=== PATIENT | female | born 1985 | race Caucasian/White ===

== ENCOUNTER 2023-09-16 06:52 | Emergency (ER) | payer OTHER ==
--- NOTE | 2023-09-16 07:26 | ED ---
ENT HPI - General Chief complaint: ENT Stated complaint: Swollen Lymph nodes Time Seen by Provider: 09/16/23 07:25 Source: patient, RN notes reviewed Mode of arrival: ambulatory Limitations: no limitations - History of Present Illness Initial comments: 38-year-old female presents emergency Department with chief complaint of left- sided neck discomfort, swelling. Patient states she's had a history of enlarged lymph nodes in which she was diagnosed with cancer age 21. She did have secondary surgery in January and in which she had a lymph node removed on the right. Patient states she started having discomfort and swelling her left mandibular region and which she is concerned she denies any sore throat. - Related Data Previous Rx's Medication Instructions Recorded Amoxic-Pot Clav 875-125Mg 1 tab PO Q12HR #20 tab 09/16/23 [Augmentin 875-125] Ibuprofen [Motrin] 600 mg PO Q8HR PRN #20 tab 09/16/23 Allergies Allergy/AdvReac Type Severity Reaction Status Date / Time promethazine Allergy Rapid Verified 09/16/23 07:02 Heart Rate Review of Systems ROS Statement: Those systems with pertinent positive or pertinent negative responses have been documented in the HPI. ROS Other: All systems not noted in ROS Statement are negative. Past Medical History Past Medical History: Cancer Additional Past Medical History / Comment(s): Lymph node cancer History of Any Multi-Drug Resistant Organisms: None Reported Past Surgical History: Joint Replacement Additional Past Surgical History / Comment(s): Lymph node removals, bilat knee surgery Past Psychological History: Anxiety Smoking Status: Current every day smoker Past Alcohol Use History: Occasional Past Drug Use History: Marijuana General Exam - General Exam Comments Initial Comments: Visual Physical Exam Vital signs reviewed General: Well-appearing, nontoxic, no acute distress. Head: Normocephalic, atraumatic Eyes: PERRLA, EOMI ENT: Airway patent Chest: Nonlabored breathing Skin: No visual rash, normal skin tone Neuro: Alert and oriented 3 Musculoskeletal: No gross abnormalities Limitations: no limitations Course Vital Signs 09/16/23 09/16/23 06:56 10:18 Temperature 97.8 F 97.9 F Pulse Rate 92 91 Respiratory 18 16 Rate Blood Pressure 121/83 137/91 O2 Sat by Pulse 100 97 Oximetry Medical Decision Making - Medical Decision Making I completed the quick note portion of this chart signed Jesus Bueno PA-C Was pt. sent in by a medical professional or institution (TRACY Garcia, CHRISTIAN SCIENCE READER, urgent care, hospital, or fpc...) When possible be specific @ -No Did you speak to anyone other than the patient for history (EMS, parent, family, police, friend...)? What history was obtained from this source @ -No Did you review nursing and triage notes (agree or disagree)? Why? @ -I reviewed and agree with nursing and triage notes Were old charts reviewed (outside hosp., previous admission, EMS record, old EKG, old radiological studies, urgent care reports/EKG's, fpc records)? Report findings @ -No old charts were reviewed Differential Diagnosis (chest pain, altered mental status, abdominal pain women, abdominal pain men, vaginal bleeding, weakness, fever, dyspnea, syncope, headache, dizziness, GI bleed, back pain, seizure, CVA, palpatations, mental health, musculoskeletal)? @ -Sialadenitis, lymphadenopathy, jaw pain EKG interpreted by me (3pts min.). @ -None X-rays interpreted by me (1pt min.). @ -None done CT interpreted by me (1pt min.). @ -None done U/S interpreted by me (1pt. min.). @ -US showing submandibular gland no abnormal lymph nodes What testing was considered but not performed or refused? (CT, X-rays, U/S, labs)? Why? @ -None What meds were considered but not given or refused? Why? @ -None Did you discuss the management of the patient with other professionals (professionals i.e. TRACY Garcia, CHRISTIAN SCIENCE READER, lab, RT, psych nurse, secondary social studies teacher, principal consulting engineer, teacher, police officer crime prevention, clinical case manager)? Give summary @ -No Was smoking cessation discussed for >3mins.? @ -No Was critical care preformed (if so, how long)? @ -No Were there social determinants of health that impacted care today? How? (Homelessness, low income, unemployed, alcoholism, drug addiction, transportation, low edu. Level, literacy, decrease access to med. care, senior care, rehab)? @ -No Was there de-escalation of care discussed even if they declined (Discuss DNR or withdrawal of care, Hospice)? DNR status @ -No What co-morbidities impacted this encounter? (DM, HTN, Smoking, COPD, CAD, Cancer, CVA, ARF, Chemo, Hep., AIDS, mental health diagnosis, sleep apnea, morbid obesity)? @ -None Was patient admitted / discharged? Hospital course, mention meds given and route, prescriptions, significant lab abnormalities, going to OR and other pertinent info. @ -Discharge patient we treated for sialadenitis with Augmentin. She has no significant lymph node abnormality noted, laboratory studies were unremarkable. Patient will follow-up with ENT. Undiagnosed new problem with uncertain prognosis? @ -No Drug Therapy requiring intensive monitoring for toxicity (Heparin, Nitro, Insulin, Cardizem)? @ -No Were any procedures done? @ -No Diagnosis/symptom? @ -Sialadenitis Acute, or Chronic, or Acute on Chronic? @ -[acute Uncomplicated (without systemic symptoms) or Complicated (systemic symptoms)? @ -[uncomplicated Side effects of treatment? @ -No Exacerbation, Progression, or Severe Exacerbation? @ -No Poses a threat to life or bodily function? How? (Chest pain, [place], [place], pneumonia, PE, COPD, DKA, ARF, appy, cholecystitis, CVA, Diverticulitis, Homicidal, Suicidal, threat to staff... and all critical care pts) @ -No - Lab Data Result diagrams: 09/16/23 07:48 09/16/23 07:48 Lab Results 09/16/23 09/16/23 09/16/23 Range/Units 07:48 07:48 07:48 WBC 6.9 (3.8-10.6) k/uL RBC 4.61 (3.80-5.40) m/uL Hgb 14.9 (11.4-16.0) gm/dL Hct 44.9 (34.0-46.0) % MCV 97.4 (80.0-100.0) fL MCH 32.4 (25.0-35.0) pg MCHC 33.2 (31.0-37.0) g/dL RDW 13.1 (11.5-15.5) % Plt Count 325 (150-450) k/uL MPV 8.1 Neutrophils % 72 % Lymphocytes % 20 % Monocytes % 5 % Eosinophils % 1 % Basophils % 0 % Neutrophils # 5.0 (1.3-7.7) k/uL Lymphocytes # 1.4 (1.0-4.8) k/uL Monocytes # 0.4 (0-1.0) k/uL Eosinophils # 0.1 (0-0.7) k/uL Basophils # 0.0 (0-0.2) k/uL Sodium 138 (137-145) mmol/L Potassium 4.3 (3.5-5.1) mmol/L Chloride 107 (98-107) mmol/L Carbon Dioxide 18 L (22-30) mmol/L Anion Gap 13 mmol/L BUN 15 (7-17) mg/dL Creatinine 0.57 (0.52-1.04) mg/dL Est GFR (CKD-EPI)AfAm >90 (>60 ml/min/1.73 sqM) Est GFR (CKD-EPI)NonAf >90 (>60 ml/min/1.73 sqM) Glucose 120 H (74-99) mg/dL Calcium 9.4 (8.4-10.2) mg/dL Total Bilirubin 0.4 (0.2-1.3) mg/dL AST 28 (14-36) U/L ALT 26 (4-34) U/L Alkaline Phosphatase 96 (38-126) U/L Total Protein 7.4 (6.3-8.2) g/dL Albumin 4.3 (3.5-5.0) g/dL Heterophile Antibody Negative (Negative) Group A Strep (PCR) (Not Detectd) 09/16/23 Range/Units 07:48 WBC (3.8-10.6) k/uL RBC (3.80-5.40) m/uL Hgb (11.4-16.0) gm/dL Hct (34.0-46.0) % MCV (80.0-100.0) fL MCH (25.0-35.0) pg MCHC (31.0-37.0) g/dL RDW (11.5-15.5) % Plt Count (150-450) k/uL MPV Neutrophils % % Lymphocytes % % Monocytes % % Eosinophils % % Basophils % % Neutrophils # (1.3-7.7) k/uL Lymphocytes # (1.0-4.8) k/uL Monocytes # (0-1.0) k/uL Eosinophils # (0-0.7) k/uL Basophils # (0-0.2) k/uL Sodium (137-145) mmol/L Potassium (3.5-5.1) mmol/L Chloride (98-107) mmol/L Carbon Dioxide (22-30) mmol/L Anion Gap mmol/L BUN (7-17) mg/dL Creatinine (0.52-1.04) mg/dL Est GFR (CKD-EPI)AfAm (>60 ml/min/1.73 sqM) Est GFR (CKD-EPI)NonAf (>60 ml/min/1.73 sqM) Glucose (74-99) mg/dL Calcium (8.4-10.2) mg/dL Total Bilirubin (0.2-1.3) mg/dL AST (14-36) U/L ALT (4-34) U/L Alkaline Phosphatase (38-126) U/L Total Protein (6.3-8.2) g/dL Albumin (3.5-5.0) g/dL Heterophile Antibody (Negative) Group A Strep (PCR) NOT DETECTED (Not Detectd) Disposition Clinical Impression: Sialadenitis Disposition: HOME SELF-CARE Condition: Stable Instructions (If sedation given, give patient instructions): Sialoadenitis (ED) Additional Instructions: Please return to the Emergency Department if symptoms worsen or any other concerns. Prescriptions: Amoxic-Pot Clav 875-125Mg [Augmentin 875-125] 1 tab PO Q12HR #20 tab Ibuprofen [Motrin] 600 mg PO Q8HR PRN #20 tab PRN Reason: Pain Is patient prescribed a controlled substance at d/c from ED?: No Referrals: Kaleb Fajardo MD [Primary Care Provider] - 1-2 days Orion Coburn MD [STAFF PHYSICIAN] - 1-2 days Time of Disposition: 09:55
[2023-09-16 08:24] LABS: Basophils % (A) 0 %; Eosinophils # (A) 0.1 k/uL (0-0.7); Eosinophils % (A) 1 %; HCT 44.9 % (34.0-46.0); HGB 14.9 gm/dL (11.4-16.0); Lymphocytes # (A) 1.4 k/uL (1.0-4.8); Lymphocytes % (A) 20 %; MCH 32.4 pg (25.0-35.0); MCHC 33.2 g/dL (31.0-37.0); MCV 97.4 fL (80.0-100.0); Mean Platelet Volume 8.1; Monocytes # (A) 0.4 k/uL (0-1.0); Monocytes % (A) 5 %; Neutrophils % (A) 72 %; Platelet Count 325 k/uL (150-450); RBC 4.61 m/uL (3.80-5.40); RDW 13.1 % (11.5-15.5); WBC 6.9 k/uL (3.8-10.6)
[2023-09-16] MEDS ORDERED: HYDROmorphone 1 MG/ML 1 ML SYRINGE IM STA (08:39)
[2023-09-16 08:49] LABS: ALT 26 U/L (4-34); AST 28 U/L (14-36); African American GFR (CKD) >90 (>60 ml/min/1.73 sqM); Albumin 4.3 g/dL (3.5-5.0); Alkaline Phosphatase 96 U/L (38-126); Anion Gap 13 mmol/L; Blood Urea Nitrogen 15 mg/dL (7-17); Calcium 9.4 mg/dL (8.4-10.2); Carbon Dioxide 18 mmol/L (22-30); Chloride 107 mmol/L (98-107); Glucose 120 mg/dL (74-99); Non-African American GFR(CKD) >90 (>60 ml/min/1.73 sqM); Potassium 4.3 mmol/L (3.5-5.1); Sodium 138 mmol/L (137-145); Total Bilirubin 0.4 mg/dL (0.2-1.3); Total Protein 7.4 g/dL (6.3-8.2)
--- NOTE | 2023-09-16 09:34 | US ---
EXAMINATION TYPE: US thyroid st tissue head/neck DATE OF EXAM: 09/16/2023 COMPARISON: NONE CLINICAL INDICATION: Female, 38 years old with history of Left-sided neck pain hx of CA; Hx cancer at age 21. Hx right neck lymph node removal = benign. Left neck pain. Patient states she feels her l ymph nodes swollen. TECHNIQUE: Multiple sonographic images taken on patients area of concern. FINDINGS: Left lateral superior neck scanned at area of concern/pain/palpable. At area of palpable, submandibular gland visualized. Lymph nodes seen with largest measured : 1- short axis = 0.7 cm and cortical thickness= 3.6 mm 2- short axis = 0.7 cm and cortical thickness= 3.0 mm IMPRESSION: Area of palpable abnormality correlates with submandibular gland. There are morphologica lly normal-appearing lymph nodes within the neck.
[2023-09-16] MEDS ORDERED: ACET/COD 300 MG/30 MG STARTER PACK 6 TAB BTL PO STA (09:51)
[2023-09-16 10:42] VITALS: BP 137/91; PULSE 91; RESP 16; TEMP 97.9
== END 2023-09-16 10:20 | disposition home or self-care (01) ==
LOC: EC 06:52
DX: K11.20 Sialoadenitis, unspecified (principal); F17.200 Nicotine dependence, unspecified, uncomplicated; F12.90 Cannabis use, unspecified, uncomplicated; Z88.8 Allergy status to other drugs, medicaments and biological substances; Z86.59 Personal history of other mental and behavioral disorders
CPT/HCPCS: 36415; 87651; 80053; 85025; 86308; 76536; 99284; 96372; J1170

== ENCOUNTER 2025-01-15 13:56 | Inpatient (IN) | payer OTHER ==
--- NOTE | 2025-01-15 14:45 | ED ---
Animal Bite HPI - General Chief Complaint: Animal Bite Stated Complaint: dog bite, lili hand swelling Time Seen by Provider: 01/15/25 14:10 Source: patient Mode of arrival: ambulatory Limitations: no limitations - History of Present Illness Initial Comments: 39-year-old female who presents to the emergency department as a transfer from [facility]. Patient had a dog bite 2 days ago. States there was a neighbors dog that was running down the street and she tried to pick it up. It bit both of her hands. The dog is up-to-date on her vaccines. She is up-to-date on her tetanus. She went into [facility] yesterday and was given a dose of IV antibiotics. She was supposed to be transferred to [facility] but states that her car and route. Today she presented to [place] reporting to bilateral hand swelling. They did give her 2 g of Rocephin, 2 g of Vanco and recommended that she be transferred as there is concern for flexor tenosynovitis due to the painful flexion and extension of her hands. Patient was given 4 mg of morphine for pain. She did transfer herself to our hospital by private vehicle. She denies any fevers. No other alleviating, precipitating or modifying factors - Related Data Home Medications Medication Instructions Recorded Confirmed QUEtiapine [SEROquel] 100 mg PO HS 01/15/25 01/15/25 Venlafaxine HCl [Effexor XR] 150 mg PO DAILY 01/15/25 01/15/25 busPIRone HCL 15 mg PO BID 01/15/25 01/15/25 cloNIDine HCL [Catapres] 0.2 mg PO BID 01/15/25 01/15/25 Allergies Allergy/AdvReac Type Severity Reaction Status Date / Time ciprofloxacin [From Cipro] Allergy Rash/Hives/Lip Verified 01/15/25 16:22 Swelling gabapentin Allergy Rash/Hives/ Verified 01/15/25 16:22 Insomnia tramadol Allergy Rash/Hives Verified 01/15/25 16:22 promethazine AdvReac Rapid Verified 01/15/25 16:22 Heart Rate/Agitation trazodone AdvReac Hallucinati Verified 01/15/25 16:22 ons/Nightma res Review of Systems ROS Statement: Those systems with pertinent positive or pertinent negative responses have been documented in the HPI. ROS Other: All systems not noted in ROS Statement are negative. Past Medical History Past Medical History: Cancer Additional Past Medical History / Comment(s): Lymph node cancer History of Any Multi-Drug Resistant Organisms: None Reported Past Surgical History: Joint Replacement, Orthopedic Surgery Additional Past Surgical History / Comment(s): Lymph node removals, bilat knee surgery Past Psychological History: Anxiety Smoking Status: Current every day smoker Past Alcohol Use History: Occasional Past Drug Use History: Marijuana General Exam Limitations: no limitations General appearance: alert, in no apparent distress Head exam: Present: atraumatic, normocephalic, normal inspection Eye exam: Present: normal appearance, PERRL, EOMI. Absent: scleral icterus, conjunctival injection, periorbital swelling ENT exam: Present: normal exam, mucous membranes moist Neck exam: Present: normal inspection. Absent: tenderness, meningismus, lymphadenopathy Respiratory exam: Present: normal lung sounds bilaterally. Absent: respiratory distress, wheezes, rales, rhonchi, stridor Cardiovascular Exam: Present: regular rate, normal rhythm, normal heart sounds. Absent: systolic murmur, diastolic murmur, rubs, gallop, clicks GI/Abdominal exam: Present: soft, normal bowel sounds. Absent: distended, tenderness, guarding, rebound, rigid Extremities exam: Present: tenderness, normal capillary refill, other (Patient has significant swelling to her bilateral hands. There is a 1 cm pustule on the left index finger on the dorsal lateral surface. Patient has a puncture site at the anterior aspect of the MCP of the fourth digit on the right. There is some difficulties with flexion and extension due to swe). Absent: pedal edema, joint swelling, calf tenderness Back exam: Present: normal inspection Neurological exam: Present: alert, oriented X3, CN II-XII intact Psychiatric exam: Present: normal affect, normal mood Skin exam: Present: warm, dry, normal color, other (Patient has 2+ DP and PT pulses. Compartments are soft). Absent: rash Course Vital Signs 01/15/25 01/15/25 01/15/25 14:06 16:15 17:31 Temperature 97.5 F L 97.7 F Pulse Rate 96 79 82 Respiratory 20 18 18 Rate Blood Pressure 142/90 128/102 138/95 O2 Sat by Pulse 100 100 100 Oximetry Medical Decision Making - Medical Decision Making Was pt. sent in by a medical professional or institution (, PA, STAINED GLASS PAINTER, urgent care, hospital, or [place] health care facility...) When possible be specific @ -Patient was seen by Dr. Ling at [facility] Did you speak to anyone other than the patient for history (EMS, parent, family, police, friend...)? What history was obtained from this source @ -I spoke with Dr. Ling at [facility] Did you review nursing and triage notes (agree or disagree)? Why? @ -I reviewed and agree with nursing and triage notes Were old charts reviewed (outside hosp., previous admission, EMS record, old EKG, old radiological studies, urgent care reports/EKG's, [place] health care facility records)? Report findings @ -I reviewed the transfer packet that was sent with the patient today from [facility] which demonstrated which antibiotic she already received Differential Diagnosis (chest pain, altered mental status, abdominal pain women, abdominal pain men, vaginal bleeding, weakness, fever, dyspnea, syncope, headache, dizziness, GI bleed, back pain, seizure, CVA, palpatations, mental health, musculoskeletal)? @ -Cellulitis, compartment syndrome, flexor tenosynovitis EKG interpreted by me (3pts min.). @ -Not done X-rays interpreted by me (1pt min.). @ -None done CT interpreted by me (1pt min.). @ -None done U/S interpreted by me (1pt. min.). @ -None done What testing was considered but not performed or refused? (CT, X-rays, U/S, la bs)? Why? @ -None What meds were considered but not given or refused? Why? @ -None Did you discuss the management of the patient with other professionals (professionals i.e. , TRACY, STAINED GLASS PAINTER, lab, RT, psych nurse, director of social work, curtains and draperies salesperson, teacher, lead security officer, case worker)? Give summary @ -Spoke with Chanel Doe from orthopedics. Also spoke with Dr. kelley from [facility] for admission Was smoking cessation discussed for >3mins.? @ -No Was critical care preformed (if so, how long)? @ -No Were there social determinants of health that impacted care today? How? (Homelessness, low income, unemployed, alcoholism, drug addiction, transportation, low edu. Level, literacy, decrease access to med. care, half-way, rehab)? @ -No Was there de-escalation of care discussed even if they declined (Discuss DNR or withdrawal of care, Hospice)? DNR status @ -No What co-morbidities impacted this encounter? (DM, HTN, Smoking, COPD, CAD, Cancer, CVA, ARF, Chemo, Hep., AIDS, mental health diagnosis, sleep apnea, mo rbid obesity)? @ -None Was patient admitted / discharged? Hospital course, mention meds given and r oute, prescriptions, significant lab abnormalities, going to OR and other pertinent info. @ -Upon arrival patient seen and evaluated in bed 24. Thorough history and physical exam was performed. I did review the transfer packet. Patient was transferred here for orthopedic consultation. I did speak with Chanel Doe to let her know that the patient was in the emergency department. She will be a dmitted to Dr. Kelley and orthopedics was accepting of the consult. I did continue the patient on antibiotics and pain control. Undiagnosed new problem with uncertain prognosis? @ -No Drug Therapy requiring intensive monitoring for toxicity (Heparin, Nitro, Insulin, Cardizem)? @ -No Were any procedures done? @ -No Diagnosis/symptom? @ -Acute dog bite bilateral hands, acute bilateral hand cellulitis, possible tenosynovitis Acute, or Chronic, or Acute on Chronic? @ -Acute Uncomplicated (without systemic symptoms) or Complicated (systemic symptoms)? @ -Complicated Side effects of treatment? @ -No Exacerbation, Progression, or Severe Exacerbation? @ -No Poses a threat to life or bodily function? How? (Chest pain, USA, [place], pneumonia, PE, COPD, DKA, ARF, appy, cholecystitis, CVA, Diverticulitis, Homicidal, Suicidal, threat to staff... and all critical care pts) @ -No - Lab Data Result diagrams: 01/15/25 15:50 01/15/25 15:50 Disposition Clinical Impression: Dog bite, Flexor tenosynovitis of finger Disposition: ADMITTED IP TO THIS [facility] Condition: Stable Is patient prescribed a controlled substance at d/c from ED?: No Time of Disposition: 14:46 Decision to Admit Reason: Admit from EC Decision Date: 01/15/25 Decision Time: 14:46
[2025-01-15] MEDS ORDERED: NALOXONE 0.4 MG/ML 1 ML VIAL IV PRN (14:46)
[2025-01-15] MEDS: SODIUM CHLORIDE 0.9% 1,000 ML IV SCH (15:51)
[2025-01-15] MEDS: VANCOMYCIN 1,750 MG in SODIUM CHLORIDE 0.9% 500 ML 500 ML IVPB STA (15:52)
[2025-01-15 15:57] LABS: Basophils # (A) 0.05 10*3/uL (0.00-0.10); Basophils % (A) 0.6 %; Eosinophils # (A) 0.06 10*3/uL (0.04-0.35); Eosinophils % (A) 0.8 %; HCT 43.9 % (37.2-46.3); HGB 15.2 g/dL (12.0-15.0); Lymphocytes # (A) 1.28 10*3/uL (0.90-5.00); Lymphocytes % (A) 16.2 %; MCH 32.7 pg (27.0-32.0); MCHC 34.6 g/dL (32.0-37.0); MCV 94.4 fL (80.0-97.0); Mean Platelet Volume 9.6 fL (9.5-12.2); Monocytes # (A) 0.46 10*3/uL (0.20-1.00); Monocytes % (A) 5.8 %; Neutrophils # (A) 6.02 10*3/uL (1.80-7.70); Neutrophils % (A) 76.3 %; Platelet Count 304 10*3/uL (140-440); RBC 4.65 10*6/uL (4.10-5.20); WBC 7.89 10*3/uL (4.50-10.00)
[2025-01-15] MEDS: AMPICILLIN-SULBACTAM 3 GM in SODIUM CHLORIDE 0.9% 100 ML IVPB SCH (16:11)
[2025-01-15 16:20] LABS: ALT 36 U/L (4-34); AST 40 U/L (14-36); African American GFR (CKD) >90 (>60 ml/min/1.73 sqM); Albumin 4.3 g/dL (3.5-5.0); Alkaline Phosphatase 85 U/L (38-126); Anion Gap 10 mmol/L; Blood Urea Nitrogen 10 mg/dL (7-17); C Reactive Protein 3.1 mg/dL (<1.0); Calcium 9.6 mg/dL (8.4-10.2); Carbon Dioxide 25 mmol/L (22-30); Chloride 102 mmol/L (98-107); Glucose 125 mg/dL (74-99); Non-African American GFR(CKD) >90 (>60 ml/min/1.73 sqM); Potassium 3.8 mmol/L (3.5-5.1); Sodium 137 mmol/L (137-145); Total Bilirubin 0.6 mg/dL (0.2-1.3); Total Protein 7.4 g/dL (6.3-8.2)
[2025-01-15] MEDS: MORPHINE SULFATE 4 MG/ML SYRINGE IVP PRN (16:22)
--- NOTE | 2025-01-15 18:00 | P.CNOR ---
History of Present Illness - HPI Consult date: 01/15/25 Consult reason: joint pain (Hand pain, status post dog bite.) History of present illness: 39-year-old female who presents to the emergency department as a transfer from [facility]. Patient had a dog bite to bilateral hands 2 days ago. States there was a neighbors dog that was running down the street and she tried to pick it up. It bit both of her hands. The dog is up-to-date on her vaccine s. She is up-to-date on her tetanus. She went into [facility] yesterday and was given a dose of IV antibiotics. She was supposed to be transferred to [facility] but states that her car and route. Today she presented to [place] ER reporting to bilateral hand swelling. They did give her 2 g of Rocephin, 2 g of Vanco and recommended that she be transferred as there is concern for flexor tenosynovitis due to the painful flexion and extension of her hands. Patient was given 4 mg of morphine for pain. She did transfer herself to our hospital by private vehicle. She denies any fevers. No other alleviating, precipitating or modifying factors. We have been consulted for orthopedic evaluation. Past Medical History Past Medical History: Cancer Additional Past Medical History / Comment(s): Lymph node cancer History of Any Multi-Drug Resistant Organisms: None Reported Past Surgical History: Joint Replacement, Orthopedic Surgery Additional Past Surgical History / Comment(s): Lymph node removals, bilat knee surgery Past Psychological History: Anxiety Smoking Status: Current every day smoker Past Alcohol Use History: Occasional Past Drug Use History: Marijuana Medications and Allergies Home Medications Medication Instructions Recorded Confirmed Type QUEtiapine [SEROquel] 100 mg PO HS 01/15/25 01/15/25 History Venlafaxine HCl [Effexor XR] 150 mg PO DAILY 01/15/25 01/15/25 History busPIRone HCL 15 mg PO BID 01/15/25 01/15/25 History cloNIDine HCL [Catapres] 0.2 mg PO BID 01/15/25 01/15/25 History Allergies Allergy/AdvReac Type Severity Reaction Status Date / Time ciprofloxacin [From Cipro] Allergy Rash/Hives/Lip Verified 01/15/25 16:22 Swelling gabapentin Allergy Rash/Hives/ Verified 01/15/25 16:22 Insomnia tramadol Allergy Rash/Hives Verified 01/15/25 16:22 promethazine AdvReac Rapid Verified 01/15/25 16:22 Heart Rate/Agitation trazodone AdvReac Hallucinati Verified 01/15/25 16:22 ons/Nightma res Physical Examination This is a pleasant 39-year-old female in no acute distress. She is alert and oriented x 3. Exam of the head neck revealed no obvious deformity. Full cervical spine motion without difficulty or pain. Exam of the left upper extremity reveals swelling to the index finger with a small wound on the radial aspect of the finger at the DIP joint. She is able to fully extend the finger and flex about 50% of flexion. Remaining fingers are unremarkable. Neurovascular status to the left upper extremity is intact. Exam of the right upper extremity reveals mild erythema and swelling to the palmar aspect of the hand at the region of the 3rd and 4th MCP joint. There is a small puncture wound in this area. She is able to fully extend the fingers and has some difficulty with flexion. Neurovascular status to the upper extremity is intact. Capillary refill is brisk. Results There are no hand x-rays available. - Labs Labs: Abnormal Lab Results - Last 24 Hours (Table) 01/15/25 01/15/25 Range/Units 15:50 15:50 Hgb 15.2 H (12.0-15.0) g/dL MCH 32.7 H (27.0-32.0) pg Glucose 125 H (74-99) mg/dL AST 40 H (14-36) U/L ALT 36 H (4-34) U/L C-Reactive Protein 3.1 H (<1.0) mg/dL H & H 01/15/25 Range/Units 15:50 Hgb 15.2 H (12.0-15.0) g/dL Hct 43.9 (37.2-46.3) % Result Diagrams: 01/15/25 15:50 01/15/25 15:50 Assessment and Plan (1) Bilateral hand swelling Current Visit: Yes Status: Acute Code(s): M79.89 - OTHER SPECIFIED SOFT TISSUE DISORDERS SNOMED Code(s): 268361080 (2) Superficial wound due to dog bite Current Visit: Yes Status: Acute Code(s): T14.8XXA - OTHER INJURY OF UNSPECIFIED BODY REGION, INITIAL ENCOUNTER; W54.0XXA - BITTEN BY DOG, INITIAL ENCOUNTER SNOMED Code(s): 638074106 Plan: The clinical findings are discussed with the patient. It is recommended she have at least 24 hours of IV antibiotics and moist heat to both hands. I will reevaluate tomorrow and discussed possible surgical debridement if necessary.
[2025-01-15 18:30] LABS: Erythrocyte Sedimentation Rate 35 mm/Hr (0-20)
--- NOTE | 2025-01-15 19:44 | P.HPIM ---
History of Present Illness This is a pleasant 39 years old female who presents with animal bite. Patient was seen with family member, significant other at bedside. Patient states that she has been bitten by a neighbor dog. She thinks her symptoms were extended approximately. She reports pain about 9/10 No chest pain. No dyspnea. No other specific GI/ symptoms. No headache dizziness weakness numbness She smokes about 4 to 5 cigarettes/day and she was counseled to quit but she does not want nicotine patch. No alcohol or illicit drugs. She is afebrile and blood pressure stable WBC normal 7.8 as well as rest of CBC and BMP. Liver enzymes mildly elevated. ESR is slightly up at 35 with CRP slightly up at 3.1 Patient is on IV vancomycin Patient evaluated by orthopedic team with possible need for surgical debridement per their evaluation Review of Systems Review of systems CONSTITUTIONAL: No fever, no malaise, no fatigue. HEENT: No recent visual problems or hearing problems. Denied any sore throat. CARDIOVASCULAR: No orthopnea, PND, no palpitations, no syncope. PULMONARY: No shortness of breath, no cough, no hemoptysis. GASTROINTESTINAL: No diarrhea, no nausea, no vomiting, no abdominal pain. Normoactive bowel sounds. NEUROLOGICAL: No headaches, no weakness, no numbness. HEMATOLOGICAL: Denies any bleeding or petechiae. GENITOURINARY: Denies any burning micturition, frequency, or urgency. MUSCULOSKELETAL/RHEUMATOLOGICAL: Denies any joint pain, swelling, or any muscle pain. ENDOCRINE: Denies any polyuria or polydipsia. Past Medical History Past Medical History: Cancer Additional Past Medical History / Comment(s): Lymph node cancer History of Any Multi-Drug Resistant Organisms: None Reported Past Surgical History: Joint Replacement, Orthopedic Surgery Additional Past Surgical History / Comment(s): Lymph node removals, bilat knee surgery Past Psychological History: Anxiety Smoking Status: Current every day smoker Past Alcohol Use History: Occasional Past Drug Use History: Marijuana Medications and Allergies Home Medications Medication Instructions Recorded Confirmed Type QUEtiapine [SEROquel] 100 mg PO HS 01/15/25 01/15/25 History Venlafaxine HCl [Effexor XR] 150 mg PO DAILY 01/15/25 01/15/25 History busPIRone HCL 15 mg PO BID 01/15/25 01/15/25 History cloNIDine HCL [Catapres] 0.2 mg PO BID 01/15/25 01/15/25 History Allergies Allergy/AdvReac Type Severity Reaction Status Date / Time ciprofloxacin [From Cipro] Allergy Rash/Hives/Lip Verified 01/15/25 16:22 Swelling gabapentin Allergy Rash/Hives/ Verified 01/15/25 16:22 Insomnia tramadol Allergy Rash/Hives Verified 01/15/25 16:22 promethazine AdvReac Rapid Verified 01/15/25 16:22 Heart Rate/Agitation trazodone AdvReac Hallucinati Verified 01/15/25 16:22 ons/Nightma res Physical Exam Vitals: Vital Signs Temp Pulse Pulse Resp BP BP Pulse Ox 01/15/25 18:07 97.3 F L 71 16 153/91 100 01/15/25 17:31 97.7 F 82 18 138/95 100 01/15/25 16:15 79 18 128/102 100 01/15/25 14:06 97.5 F L 96 20 142/90 100 Intake and Output 01/15/25 01/15/25 01/15/25 06:59 14:59 22:59 Other: Weight 103.873 kg 103.873 kg GENERAL: The patient is alert and oriented x3, not in any acute distress. Well developed, well nourished. HEENT: Pupils are round and equally reacting to light. EOMI. No scleral icterus. No conjunctival pallor. Normocephalic, atraumatic. No pharyngeal erythema. No thyromegaly. CARDIOVASCULAR: S1 and S2 present. No murmurs, rubs, or gallops. PULMONARY: Chest is clear to auscultation, no wheezing , no crackles. ABDOMEN: Soft, nontender, nondistended, normoactive bowel sounds. No palpable organomegaly. MUSCULOSKELETAL: No joint swelling or deformity. -EXTREMITIES: No cyanosis, clubbing, or pedal edema. Bilateral hand swelling and tender with some limitation of movement for example finger flexion. With e vidence of animal bite with close puncture wounds on the bilateral right index finger and left palm and side of the left little finger. With some swelling extending to the distal forearm. Moderate free bilateral wrist movement NEUROLOGICAL: Gross neurological examination did not reveal any focal deficits. SKIN: No rashes. no petechiae. Results CBC & Chem 7: 01/15/25 15:50 01/15/25 15:50 Labs: Abnormal Lab Results - Last 24 Hours (Table) 01/15/25 01/15/25 Range/Units 15:50 15:50 Hgb 15.2 H (12.0-15.0) g/dL MCH 32.7 H (27.0-32.0) pg ESR 35 H (0-20) mm/Hr Glucose 125 H (74-99) mg/dL AST 40 H (14-36) U/L ALT 36 H (4-34) U/L C-Reactive Protein 3.1 H (<1.0) mg/dL Thrombosis Risk Factor Assmnt - Choose All That Apply Any of the Below Risk Factors Present?: No Other Risk Factors: No Other congenital or acquired thrombophilia - If yes, enter type in comment: No Thrombosis Risk Factor Assessment Level: Very Low Risk Assessment and Plan Assessment: Acute bilateral hands slightly secondary to animal bite Nicotine dependence Obesity with BMI of 41.9 Elevated inflammatory markers Mild transaminitis Plan: Continue with IV antibiotics IV vancomycin Orthopedic team already evaluated patient. Will consult infectious disease team Follow-up culture results Further recommendation based on the clinical progress GI prophylaxis: Pepcid DVT prophylaxis: Subcutaneous Lovenox Prognosis is guarded
[2025-01-15] MEDS: FAMOTIDINE 20 MG/2 ML VIAL IV SCH (21:36)
[2025-01-15] MEDS: HEPARIN SODIUM,PORCINE 5,000 UNIT/ML 1 ML VIAL SQ SCH (21:38)
[2025-01-15] MEDS: VANCOMYCIN 1,750 MG in SODIUM CHLORIDE 0.9% 500 ML 500 ML IVPB SCH (21:38)
[2025-01-15] MEDS: QUEtiapine 100 MG TAB PO SCH (21:38)
[2025-01-16] MEDS ORDERED: VANCOMYCIN IV PER PHARMACY 1 EACH MISC MISCELLANE PRN (08:00)
[2025-01-16 08:35] LABS: HCT 45.2 % (37.2-46.3); HGB 14.9 g/dL (12.0-15.0); MCH 32.2 pg (27.0-32.0); MCV 97.6 FL (80.0-97.0); NRBC Per 100 WBC 0 X 10*3/uL (0.00-0.01); Platelet Count 320 X 10*3/uL (140-440); RBC 4.63 X 10*6/uL (4.10-5.20); RDW 13.2 % (11.5-14.5); WBC 5.18 X 10*3/uL (4.50-10.00)
[2025-01-16 08:36] LABS: Basophils # (A) 0.03 X 10*3/uL (0.00-0.10); Basophils % (A) 0.6 %; Eosinophils % (A) 1.9 %; Lymphocytes # (A) 1.23 X 10*3/uL (0.90-5.00); Lymphocytes % (A) 23.7 %; Monocytes # (A) 0.47 X 10*3/uL (0.20-1.00); Monocytes % (A) 9.1 %; Neutrophils # (A) 3.33 X 10*3/uL (1.80-7.70); Neutrophils % (A) 64.3 %
[2025-01-16] MEDS: ACETAMINOPHEN TAB 325 MG TAB PO PRN (08:51)
[2025-01-16 09:08] LABS: BUN/Creat Ratio 10.25 Ratio (12.00-20.00); Blood Urea Nitrogen 8.2 mg/dL (9.0-27.0); Calcium 8.9 mg/dL (8.7-10.3); Carbon Dioxide 24.1 mmol/L (21.6-31.8); Chloride 106 mmol/L (96-109); Glucose 106 mg/dL (70-110); Potassium 4.3 mmol/L (3.5-5.5); Sodium 139 mmol/L (135-145)
--- NOTE | 2025-01-16 10:29 | P.PN ---
Subjective Progress Note Date: 01/16/25 Principal diagnosis: Dog bite bilateral hands. Cellulitis bilateral hands. 39-year-old female who presents to the emergency department as a transfer from [facility]. Patient had a dog bite to bilateral hands 2 days ago. States there was a neighbors dog that was running down the street and she tried to pick it up. It bit both of her hands. The dog is up-to-date on her vaccines. She is up-to-date on her tetanus. She went into [facility] yesterday and was given a dose of IV antibiotics. She was supposed to be transferred to [facility] but states that her car and route. Today she presented to [facility] reporting to bilateral hand swelling. They did give her 2 g of Rocephin, 2 g of Vanco and recommended that she be transfe rred as there is concern for flexor tenosynovitis due to the painful flexion and extension of her hands. Patient was given 4 mg of morphine for pain. She did transfer herself to our hospital by private vehicle. She denies any fevers. No other alleviating, precipitating or modifying factors. We have been consulted for orthopedic evaluation. 01/16/2025: The patient states that she continues to have pain in the right hand. She has noticed some bloody/purulent drainage from the palmar aspect of the hand. She has been afebrile. Vital signs are stable. Objective - Vital Signs Vital signs: Vital Signs Temp 97.4 F L 01/16/25 07:04 Pulse 98 01/16/25 07:04 Resp 16 01/16/25 07:04 BP 119/88 01/16/25 07:04 Pulse Ox 99 01/16/25 07:04 FiO2 Intake & Output 01/15/25 01/16/25 01/16/25 18:59 06:59 18:59 Weight 103.873 kg Other: # Voids 2 - Exam This is a pleasant 39-year-old female in no acute distress. She is alert and oriented x 3. Exam of the left upper extremity reveals a small puncture to the radial aspect of the index finger with no active drainage. There is mild soft tissue swelling. She is able to fully extend and nearly fully flex the finger with minimal difficulty. Exam of the right hand reveals continued swelling about the palmar aspect of the hand at the base of the 3rd and 4th fingers. There is no active drainage from the puncture wound. She is able to nearly fully extend but has difficulty flexing the fingers. Capillary refill is less than 3 seconds to the fingers. Neurovascular status to the upper extremities is intact. - Labs CBC & Chem 7: 01/16/25 04:41 01/16/25 04:41 Labs: Abnormal Lab Results - Last 24 Hours (Table) 01/15/25 01/15/25 01/16/25 Range/Units 15:50 15:50 04:41 Hgb 15.2 H (12.0-15.0) g/dL MCV 97.6 H (80.0-97.0) FL MCH 32.7 H 32.2 H (27.0-32.0) pg ESR 35 H (0-20) mm/Hr BUN (9.0-27.0) mg/dL BUN/Creatinine Ratio (12.00-20.00) Ratio Glucose 125 H (74-99) mg/dL AST 40 H (14-36) U/L ALT 36 H (4-34) U/L C-Reactive Protein 3.1 H (<1.0) mg/dL 01/16/25 Range/Units 04:41 Hgb (12.0-15.0) g/dL MCV (80.0-97.0) FL MCH (27.0-32.0) pg ESR (0-20) mm/Hr BUN 8.2 L (9.0-27.0) mg/dL BUN/Creatinine Ratio 10.25 L (12.00-20.00) Ratio Glucose (74-99) mg/dL AST (14-36) U/L ALT (4-34) U/L C-Reactive Protein (<1.0) mg/dL Assessment and Plan (1) Bilateral hand swelling Current Visit: Yes Status: Acute Code(s): M79.89 - OTHER SPECIFIED SOFT TISSUE DISORDERS SNOMED Code(s): 418582164 (2) Superficial wound due to dog bite Current Visit: Yes Status: Acute Code(s): T14.8XXA - OTHER INJURY OF UNSPECIFIED BODY REGION, INITIAL ENCOUNTER; W54.0XXA - BITTEN BY DOG, INITIAL ENCOUNTER SNOMED Code(s): 201620570 Plan: The clinical findings are discussed with the patient. It is recommended she have at least 24-48 hours of IV antibiotics and moist heat to both hands. I will reevaluate tomorrow and discussed possible surgical debridement if necessary. I will make her n.p.o. tonight for possible I&D tomorrow.
--- NOTE | 2025-01-16 11:28 | P.PN ---
Subjective This is a pleasant 39 years old female who presents with animal bite. Patient was seen with family member, significant other at bedside. Patient states that she has been bitten by a neighbor dog. She thinks her symptoms were extended approximately. She reports pain about 9/10 No chest pain. No dyspnea. No other specific GI/ symptoms. No headache dizziness weakness numbness She smokes about 4 to 5 cigarettes/day and she was counseled to quit but she does not want nicotine patch. No alcohol or illicit drugs. She is afebrile and blood pressure stable WBC normal 7.8 as well as rest of CBC and BMP. Liver enzymes mildly elevated. ESR is slightly up at 35 with CRP slightly up at 3.1 Patient is on IV vancomycin Patient evaluated by orthopedic team with possible need for surgical debridement per their evaluation Patient showing improvement in her left hand with less swelling and restriction of movement, her main symptoms is in her left index finger with swelling and tenderness with close puncture wounds on either side However her right hand is still very symptomatic swollen tender erythematous with severe limitation of flexion and extension of the fingers. Her wrist is fine. Patient has mild hypothermia Labs look stable She remains on IV Unasyn and IV vancomycin She is on normal saline 30 mL/h Patient requests resume her mental health medication Orthopedic team planning for possible I&D of her right hand tomorrow Review of systems GASTROINTESTINAL: No diarrhea, no nausea, no vomiting, no abdominal pain. Normoactive bowel sounds. NEUROLOGICAL: No headaches, no weakness, no numbness. HEMATOLOGICAL: Denies any bleeding or petechiae. GENITOURINARY: Denies any burning micturition, frequency, or urgency. ENDOCRINE: Denies any polyuria or polydipsia. Active Medications Generic Name Dose Route Start Last Admin Trade Name Freq PRN Reason Stop Dose Admin Acetaminophen 650 mg 01/15/25 14:46 01/16/25 08:51 Acetaminophen Tab 325 Mg Tab PO 650 mg Q6HR PRN Administration Mild Pain or Fever > 100.5 Famotidine 20 mg 01/15/25 21:00 01/16/25 07:59 Famotidine 20 Mg/2 Ml Vial IV 20 mg Q12HR REN Administration Heparin Sodium (Porcine) 5,000 unit 01/15/25 21:00 01/16/25 07:59 Heparin Sodium,Porcine 5,000 Unit/Ml 1 Ml Vial SQ 5,000 unit Q12HR REN Administration Sodium Chloride 1,000 mls @ 130 mls/hr 01/15/25 15:00 01/16/25 08:00 Saline 0.9% IV 130 mls/hr .[id number] REN Administration Vancomycin HCl 1,750 mg/ 500 mls @ 167 mls/hr 01/15/25 21:00 01/16/25 08:52 Sodium Chloride IVPB 167 mls/hr Q12HR REN Administration Ampicillin Sodium/Sulbactam 100 mls @ 200 mls/hr 01/16/25 12:00 Sodium 3 gm/ Sodium Chloride IVPB Q6HR REN Protocol Miscellaneous Information 1 each 01/16/25 08:00 Vancomycin Iv Per Pharmacy 1 Each Misc MISCELLANE DIRECTED PRN Per Protocol Protocol Morphine Sulfate 4 mg 01/15/25 14:33 01/16/25 07:59 Morphine Sulfate 4 Mg/Ml Syringe IVP 4 mg Q4HR PRN Administration Pain Naloxone HCl 0.2 mg 01/15/25 14:46 Naloxone 0.4 Mg/Ml 1 Ml Vial IV Q2M PRN Opioid Reversal Ondansetron HCl 4 mg 01/15/25 14:46 Ondansetron 4 Mg/2 Ml Vial IVP Q8HR PRN Nausea And Vomiting Quetiapine Fumarate 100 mg 01/15/25 21:15 01/15/25 21:38 Quetiapine 100 Mg Tab PO 100 mg HS REN Administration Objective - Vital Signs Vital signs: Vital Signs Temp 97.4 F L 01/16/25 07:04 Pulse 98 01/16/25 07:04 Resp 16 01/16/25 07:04 BP 119/88 01/16/25 07:04 Pulse Ox 99 01/16/25 07:04 FiO2 Intake & Output 01/15/25 01/16/25 01/16/25 18:59 06:59 18:59 Weight 103.873 kg Other: # Voids 2 - Exam GENERAL: The patient is alert and oriented x3, not in any acute distress. Well developed, well nourished. HEENT: Pupils are round and equally reacting to light. EOMI. No scleral icterus. No conjunctival pallor. Normocephalic, atraumatic. No pharyngeal erythema. No thyromegaly. CARDIOVASCULAR: S1 and S2 present. No murmurs, rubs, or gallops. PULMONARY: Chest is clear to auscultation, no wheezing , no crackles. ABDOMEN: Soft, nontender, nondistended, normoactive bowel sounds. No palpable organomegaly. MUSCULOSKELETAL: No joint swelling or deformity. -EXTREMITIES: No cyanosis, clubbing, or pedal edema. Bilateral hand swelling an d tender with some limitation of movement for example finger flexion. With evidence of animal bite with close puncture wounds on the bilateral right index finger and left palm and side of the left little finger. With some swelling extending to the distal forearm. Moderate free bilateral wrist movement NEUROLOGICAL: Gross neurological examination did not reveal any focal deficits. SKIN: No rashes. no petechiae. - Labs CBC & Chem 7: 01/16/25 04:41 01/16/25 04:41 Labs: Abnormal Lab Results - Last 24 Hours (Table) 01/15/25 01/15/25 01/16/25 Range/Units 15:50 15:50 04:41 Hgb 15.2 H (12.0-15.0) g/dL MCV 97.6 H (80.0-97.0) FL MCH 32.7 H 32.2 H (27.0-32.0) pg ESR 35 H (0-20) mm/Hr BUN (9.0-27.0) mg/dL BUN/Creatinine Ratio (12.00-20.00) Ratio Glucose 125 H (74-99) mg/dL AST 40 H (14-36) U/L ALT 36 H (4-34) U/L C-Reactive Protein 3.1 H (<1.0) mg/dL 01/16/25 Range/Units 04:41 Hgb (12.0-15.0) g/dL MCV (80.0-97.0) FL MCH (27.0-32.0) pg ESR (0-20) mm/Hr BUN 8.2 L (9.0-27.0) mg/dL BUN/Creatinine Ratio 10.25 L (12.00-20.00) Ratio Glucose (74-99) mg/dL AST (14-36) U/L ALT (4-34) U/L C-Reactive Protein (<1.0) mg/dL Assessment and Plan Assessment: Acute bilateral hands slightly secondary to animal bite Nicotine dependence Obesity with BMI of 41.9 Elevated inflammatory markers Mild transaminitis Plan: Continue with IV antibiotics IV vancomycin and IV Unasyn Orthopedic team already evaluated patient. Will consult infectious disease team Follow-up culture results Further recommendation based on the clinical progress GI prophylaxis: Pepcid DVT prophylaxis: Subcutaneous Lovenox Prognosis is guarded
[2025-01-16] MEDS: VENLAFAXINE HCL ER 150 MG CAP PO SCH (12:25)
[2025-01-16] MEDS: cloNIDine HCL 0.2 MG TAB PO SCH ×2 (12:25→20:35)
[2025-01-16] MEDS: busPIRone HCl 5 MG TAB PO SCH (12:25)
[2025-01-16] MEDS: AMPICILLIN-SULBACTAM 3 GM in SODIUM CHLORIDE 0.9% 100 ML IVPB SCH (13:05)
--- NOTE | 2025-01-16 21:59 | P.CONS ---
History of Present Illness - Reason for Consult Consult date: 01/16/25 Hand cellulitis, animal bite Requesting physician: Darrick E Sheet - Chief Complaint Bilateral hand pain and swelling x 2 days - History of Present Illness Patient is a 39-year-old female with a past medical history significant for cancer presenting to the hospital as a transfer from [facility] for evaluation of bilateral hand dog bite patient mention her neighbor dog was running away she picked him up subsequently patient has been bitten on both hands that happened about 2 days before the patient presented to the hospital patient did went to [facility] yesterday and received dose of IV antibiotic subsequently patient presented to [facility] yesterday because of worsening swelling and redness to bilateral hand area patie nt complaining of pain describing it to be sharp throbbing almost 10 out of 10 without any additional associated swelling redness and did have some clear drainage from the palm aspect of the right hand patient has been complaining of some chills but no high-grade fever has been reported patient is not tachycardic hypotensive or hypoxic she did have white count 7.89 creatinine 0.64 liver enzymes mildly elevated patient was started on Unasyn and vancomycin infectious disease was consulted for further management of antibiotic therapy Review of Systems Positive point and negatives has been mentioned in the HPI, complete review of systems was performed and all other systems are negative Past Medical History Past Medical History: Cancer Additional Past Medical History / Comment(s): Lymph node cancer History of Any Multi-Drug Resistant Organisms: None Reported Past Surgical History: Joint Replacement, Orthopedic Surgery Additional Past Surgical History / Comment(s): Lymph node removals, bilat knee surgery Past Psychological History: Anxiety Smoking Status: Current every day smoker Past Alcohol Use History: Occasional Past Drug Use History: Marijuana Medications and Allergies Home Medications Medication Instructions Recorded Confirmed Type QUEtiapine [SEROquel] 100 mg PO HS 01/15/25 01/15/25 History Venlafaxine HCl [Effexor XR] 150 mg PO DAILY 01/15/25 01/15/25 History busPIRone HCL 15 mg PO BID 01/15/25 01/15/25 History cloNIDine HCL [Catapres] 0.2 mg PO BID 01/15/25 01/15/25 History Allergies Allergy/AdvReac Type Severity Reaction Status Date / Time ciprofloxacin [From Cipro] Allergy Rash/Hives/Lip Verified 01/15/25 16:22 Swelling gabapentin Allergy Rash/Hives/ Verified 01/15/25 16:22 Insomnia tramadol Allergy Rash/Hives Verified 01/15/25 16:22 promethazine AdvReac Rapid Verified 01/15/25 16:22 Heart Rate/Agitation trazodone AdvReac Hallucinati Verified 01/15/25 16:22 ons/Nightma res Physical Exam Vitals: Vital Signs Temp Pulse Pulse Resp BP BP Pulse Ox 01/16/25 07:04 97.4 F L 98 16 119/88 99 01/16/25 02:47 97.5 F L 73 17 153/94 99 01/15/25 20:00 71 16 01/15/25 18:07 97.3 F L 71 16 153/91 100 01/15/25 17:31 97.7 F 82 18 138/95 100 01/15/25 16:15 79 18 128/102 100 01/15/25 14:06 97.5 F L 96 20 142/90 100 Intake and Output 01/15/25 01/16/25 01/16/25 22:59 06:59 14:59 Other: # Voids 1 2 Weight 103.873 kg GENERAL DESCRIPTION: Middle-age female lying in bed, no distress. No tachypnea or accessory muscle of respiration use. HEENT: Shows Pallor , no scleral icterus. Oral mucous membrane is dry. NECK: Trachea central, no thyromegaly. LUNGS: Unlabored breathing. Clear to auscultation anteriorly. No wheeze or crackle. HEART: S1, S2, regular rate and rhythm. No loud murmur ABDOMEN: Soft, no tenderness , guarding or rigidity, no organomegaly EXTREMITIES: Lateral hand did have laceration to swelling and redness some clear drainage SKIN: No rash, no masses palpable. NEUROLOGICAL: The patient is awake, alert, oriented x3, mood and affect normal. Results CBC & Chem 7: 01/16/25 04:41 01/16/25 04:41 Labs: Abnormal Lab Results - Last 24 Hours (Table) 01/15/25 01/15/25 01/16/25 Range/Units 15:50 15:50 04:41 Hgb 15.2 H (12.0-15.0) g/dL MCV 97.6 H (80.0-97.0) FL MCH 32.7 H 32.2 H (27.0-32.0) pg ESR 35 H (0-20) mm/Hr BUN (9.0-27.0) mg/dL BUN/Creatinine Ratio (12.00-20.00) Ratio Glucose 125 H (74-99) mg/dL AST 40 H (14-36) U/L ALT 36 H (4-34) U/L C-Reactive Protein 3.1 H (<1.0) mg/dL 01/16/25 Range/Units 04:41 Hgb (12.0-15.0) g/dL MCV (80.0-97.0) FL MCH (27.0-32.0) pg ESR (0-20) mm/Hr BUN 8.2 L (9.0-27.0) mg/dL BUN/Creatinine Ratio 10.25 L (12.00-20.00) Ratio Glucose (74-99) mg/dL AST (14-36) U/L ALT (4-34) U/L C-Reactive Protein (<1.0) mg/dL Assessment and Plan (1) Cellulitis of right hand Current Visit: Yes Status: Acute Code(s): L03.113 - CELLULITIS OF RIGHT UPPER LIMB SNOMED Code(s): 10541193797163859 (2) Cellulitis of left hand Current Visit: Yes Status: Acute Code(s): L03.114 - CELLULITIS OF LEFT UPPER LIMB SNOMED Code(s): 14965576551987945 (3) Superficial wound due to dog bite Current Visit: Yes Status: Acute Code(s): T14.8XXA - OTHER INJURY OF UNSPECIFIED BODY REGION, INITIAL ENCOUNTER; W54.0XXA - BITTEN BY DOG, INITIAL ENCOUNTER SNOMED Code(s): 014760280 Plan: 1patient presenting to the hospital with bilateral hand pain swelling redness laceration and some drainage secondary to dog bite. Need to cover for the polymicrobial marisela and there is concern for possible deeper infection such as tenosynovitis. 2await possible surgical exploration and deep culture that should guide further antibiotic therapy 3for now we will treat the patient with vancomycin pharmacy to dose will watch her kidney function closely and Unasyn pending completion of the workup question concern answered We will follow on clinical condition and cultures to further adjust medication if needed Thank you for this consultation we will follow the patient along with you Dictation was produced using [employer] dictation software. please excuse any grammatical, word or spelling errors. Time with Patient: Greater than 30
[2025-01-17 08:16] LABS: African American GFR (CKD) >90 (>60 ml/min/1.73 sqM); Non-African American GFR(CKD) >90 (>60 ml/min/1.73 sqM)
[2025-01-17] MEDS ORDERED: MORPHINE SULFATE 4 MG/ML SYRINGE ONE (10:10)
[2025-01-17] MEDS: VANCOMYCIN TROUGH DUE 1 EACH MISC MISCELLANE ONE (11:15)
--- NOTE | 2025-01-17 11:30 | P.PN ---
Subjective Progress Note Date: 01/17/25 Principal diagnosis: Dog bite bilateral hands. Cellulitis bilateral hands. 39-year-old female who presents to the emergency department as a transfer from [facility]. Patient had a dog bite to bilateral hands 2 days ago. States there was a neighbors dog that was running down the street and she tried to pick it up. It bit both of her hands. The dog is up-to-date on her vaccines. She is up-to-date on her tetanus. She went into [facility] yesterday and was given a dose of IV antibiotics. She was supposed to be transferred to [facility] but states that her car and route. Today she presented to [place] [facility] reporting to bilateral hand swelling. They did give her 2 g of Rocephin, 2 g of Vanco and recommended that she be transfe rred as there is concern for flexor tenosynovitis due to the painful flexion and extension of her hands. Patient was given 4 mg of morphine for pain. She did transfer herself to our hospital by private vehicle. She denies any fevers. No other alleviating, precipitating or modifying factors. We have been consulted for orthopedic evaluation. 01/16/2025: The patient states that she continues to have pain in the right hand. She has noticed some bloody/purulent drainage from the palmar aspect of the hand. She has been afebrile. Vital signs are stable. 01/17/25: The patient continues to have increasing pain in the right hand. She states her left hand is doing fine. She has been using heat packs to the hands along with the IV antibiotics. Objective - Vital Signs Vital signs: Vital Signs Temp 97.6 F 01/17/25 07:13 Pulse 76 01/17/25 07:13 Resp 16 01/17/25 07:13 BP 154/96 01/17/25 07:13 Pulse Ox 99 01/17/25 07:13 FiO2 Intake & Output 01/16/25 01/17/25 01/17/25 18:59 06:59 18:59 Intake Total 240 Balance 240 Intake: Oral 240 Other: Voiding Method Toilet # Voids 3 2 1 - Exam This is a pleasant 39-year-old female in no acute distress. She is alert and oriented x 3. Exam of the left upper extremity reveals a small puncture to the radial aspect of the index finger with no active drainage. There is mild soft tissue swelling. She is able to fully extend and nearly fully flex the finger with minimal difficulty. Exam of the right hand reveals continued swelling about the palmar aspect of the hand at the base of the 3rd and 4th fingers. There is no active drainage from the puncture wound. She is able to nearly fully extend but has difficulty flexing the fingers. Capillary refill is less than 3 seconds to the fingers. - Labs CBC & Chem 7: 01/16/25 04:41 01/17/25 07:45 Assessment and Plan (1) Bilateral hand swelling Current Visit: Yes Status: Acute Code(s): M79.89 - OTHER SPECIFIED SOFT TISSUE DISORDERS SNOMED Code(s): 588492951 (2) Superficial wound due to dog bite Current Visit: Yes Status: Acute Code(s): T14.8XXA - OTHER INJURY OF UNSPECIFIED BODY REGION, INITIAL ENCOUNTER; W54.0XXA - BITTEN BY DOG, INITIAL ENCOUNTER SNOMED Code(s): 096377528 Plan: The clinical findings are discussed with the patient. It is recommended she have at least 24-48 hours of IV antibiotics and moist heat to both hands. She is on schedule for an I&D of the right hand today.
[2025-01-17] MEDS: ALPRAZolam 0.5 MG TAB PO STA (12:30)
--- NOTE | 2025-01-17 15:47 | P.PN ---
Subjective Progress Note Date: 01/17/25 Principal diagnosis: Reason for follow-up is bilateral hand dog bite cellulitis Patient is a 39-year-old female with a past medical history significant for cancer presenting to the hospital for evaluation of bilateral hand dog bite cellulitis marked on the right side. On today's evaluation that is 01/17/2025, the patient continues to be afebrile, the patient is on room air and breathing comfortably, the Pt denies having any chest pain or cough, the patient denies having any abdominal pain no vomiting or any diarrhea circumventing of pain and swelling especially to the right hand area with some drainage. Patient did have a creatinine 0.68 Vanco trough is 11.3 Objective - Vital Signs Vital signs: Vital Signs Temp 97.6 F 01/17/25 07:13 Pulse 76 01/17/25 07:13 Resp 16 01/17/25 07:13 BP 154/96 01/17/25 07:13 Pulse Ox 99 01/17/25 07:13 FiO2 Intake & Output 01/16/25 01/17/25 01/17/25 18:59 06:59 18:59 Intake Total 240 Balance 240 Intake: Oral 240 Other: Voiding Method Toilet # Voids 3 2 1 - Exam GENERAL DESCRIPTION:Female up in bed in no distress RESPIRATORY SYSTEM: Unlabored breathing , decreased breath sounds at bases HEART: S1 S2 regular rate and rhythm , ABDOMEN: Soft , no tenderness EXTREMITIES: Right hand did have a swelling compared to the left hand no drainage - Labs CBC & Chem 7: 01/16/25 04:41 01/17/25 07:45 Assessment and Plan (1) Cellulitis of right hand Current Visit: Yes Status: Acute Code(s): L03.113 - CELLULITIS OF RIGHT UPPER LIMB SNOMED Code(s): 53867710091305681 (2) Cellulitis of left hand Current Visit: Yes Status: Acute Code(s): L03.114 - CELLULITIS OF LEFT UPPER LIMB SNOMED Code(s): 30207321061452142 (3) Superficial wound due to dog bite Current Visit: Yes Status: Acute Code(s): T14.8XXA - OTHER INJURY OF UNSPECIFIED BODY REGION, INITIAL ENCOUNTER; W54.0XXA - BITTEN BY DOG, INITIAL ENCOUNTER SNOMED Code(s): 242704702 Plan: 1patient presenting to the hospital with bilateral hand pain swelling redness laceration and some drainage secondary to dog bite. Need to cover for the polymicrobial marisela and there is concern for possible deeper infection such as tenosynovitis. 2patient is scheduled for surgical I&D of the right side this afternoon deep culture should be obtained 3patient will be treated with vancomycin pharmacy to dose and Unasyn while waiting for the culture to finalize Dictation was produced using [employer] dictation software. please excuse any grammatical, word or spelling errors.
[2025-01-17] MEDS: IV FLUID CONTINUATION 1,000 ML IV ONE (18:02)
[2025-01-17] MEDS: LACTATED RINGERS 1,000 ML BAG IV STA (18:12)
[2025-01-17] MEDS ORDERED: MIDAZOLAM 2 MG/2 ML VIAL ONE (18:35)
[2025-01-17] MEDS ORDERED: LIDOCAINE 1% INJ 10MG/ML (20 ML MDV) ONE (18:35)
[2025-01-17] MEDS ORDERED: fentaNYL (PF) 50 MCG/ML 2 ML AMP ONE (18:35)
[2025-01-17] MEDS ORDERED: PROPOFOL 10 MG/ML 20 ML VIAL IV ONE (18:35)
[2025-01-17] MEDS ORDERED: HYDROmorphone 0.5 MG/0.5 ML SYRINGE IVP PRN ×2 (19:09)
[2025-01-17] MEDS ORDERED: SENNOSIDES-DOCUSATE SODIUM 1 EACH TAB PO PRN (19:09)
[2025-01-17] MEDS ORDERED: HYDROcodone/APAP 5-325MG 1 EACH TAB PO PRN (19:09)
[2025-01-17] MEDS ORDERED: diphenhydrAMINE 25 MG CAP PO PRN (19:09)
[2025-01-17] MEDS: HYDROmorphone 0.5 MG/0.5 ML SYRINGE IVP PRN ×2 (19:26→19:35)
[2025-01-17] MEDS: AMPICILLIN-SULBACTAM 3 GM in SODIUM CHLORIDE 0.9% 100 ML IVPB SCH (21:14)
--- NOTE | 2025-01-17 21:23 | P.PN ---
Subjective This is a pleasant 39 years old female who presents with animal bite. Patient was seen with family member, significant other at bedside. Patient states that she has been bitten by a neighbor dog. She thinks her symptoms were extended approximately. She reports pain about 9/10 No chest pain. No dyspnea. No other specific GI/ symptoms. No headache dizziness weakness numbness She smokes about 4 to 5 cigarettes/day and she was counseled to quit but she does not want nicotine patch. No alcohol or illicit drugs. She is afebrile and blood pressure stable WBC normal 7.8 as well as rest of CBC and BMP. Liver enzymes mildly elevated. ESR is slightly up at 35 with CRP slightly up at 3.1 Patient is on IV vancomycin Patient evaluated by orthopedic team with possible need for surgical debridement per their evaluation 01/16 Patient showing improvement in her left hand with less swelling and restriction of movement, her main symptoms is in her left index finger with swelling and tenderness with close puncture wounds on either side However her right hand is still very symptomatic swollen tender erythematous with severe limitation of flexion and extension of the fingers. Her wrist is fine. Patient has mild hypothermia Labs look stable She remains on IV Unasyn and IV vancomycin She is on normal saline 30 mL/h Patient requests resume her mental health medication Orthopedic team planning for possible I&D of her right hand tomorrow 01/17 Patient right hand more swollen tender with loss of function, left hand less infected but mainly the second index finger Patient was anxious despite resuming her psych medication, extra dose of Xanax provided Patient is going for I&D with orthopedic team today She remains on broad-spectrum antibiotics with IV vancomycin and Unasyn Lower Normal Saline to 75 mL/h Objective - Vital Signs Vital signs: Vital Signs Temp 97.6 F 01/17/25 07:13 Pulse 76 01/17/25 07:13 Resp 16 01/17/25 07:13 BP 154/96 01/17/25 07:13 Pulse Ox 99 01/17/25 07:13 FiO2 Intake & Output 01/16/25 01/17/25 01/17/25 18:59 06:59 18:59 Intake Total 240 Balance 240 Intake: Oral 240 Other: Voiding Method Toilet # Voids 3 2 1 - Exam GENERAL: The patient is alert and oriented x3, not in any acute distress. Well developed, well nourished. HEENT: Pupils are round and equally reacting to light. EOMI. No scleral icterus. No conjunctival pallor. Normocephalic, atraumatic. No pharyngeal erythema. No thyromegaly. CARDIOVASCULAR: S1 and S2 present. No murmurs, rubs, or gallops. PULMONARY: Chest is clear to auscultation, no wheezing , no crackles. ABDOMEN: Soft, nontender, nondistended, normoactive bowel sounds. No palpable organomegaly. MUSCULOSKELETAL: No joint swelling or deformity. -EXTREMITIES: No cyanosis, clubbing, or pedal edema. Bilateral hand swelling and tender with some limitation of movement for example finger flexion. With evidence of animal bite with close puncture wounds on the bilateral right index finger and left palm and side of the left little finger. With some swelling extending to the distal forearm. Moderate free bilateral wrist movement NEUROLOGICAL: Gross neurological examination did not reveal any focal deficits. SKIN: No rashes. no petechiae. - Labs CBC & Chem 7: 01/16/25 04:41 01/17/25 07:45 Assessment and Plan Assessment: Acute bilateral hands slightly secondary to animal bite Nicotine dependence Obesity with BMI of 41.9 Elevated inflammatory markers Mild transaminitis Plan: Continue with IV antibiotics IV vancomycin and IV Unasyn Orthopedic team already evaluated patient. Will consult infectious disease team Follow-up culture results Further recommendation based on the clinical progress GI prophylaxis: Pepcid DVT prophylaxis: Subcutaneous Lovenox Prognosis is guarded
[2025-01-17] MEDS: VANCOMYCIN 2,000 MG in SODIUM CHLORIDE 0.9% 500 ML 500 ML IVPB SCH (22:13)
[2025-01-17] MEDS: LACTATED RINGERS 1,000 ML IV SCH (22:14)
[2025-01-18] MEDS: ONDANSETRON 4 MG/2 ML VIAL IVP PRN (00:36)
[2025-01-18] MEDS: SODIUM CHLORIDE 0.9% 500 ML 500 ML IV SCH (02:57)
[2025-01-18] MEDS: HYDROcodone/APAP 5-325MG 1 EACH TAB PO PRN (09:46)
[2025-01-18] MEDS ORDERED: HYDROmorphone 0.5 MG/0.5 ML SYRINGE IVP PRN ×2 (11:44)
[2025-01-18] MEDS: HYDROmorphone 2 MG/ML 1 ML SYRINGE IVP PRN (12:21)
--- NOTE | 2025-01-18 12:46 | P.PN ---
Subjective Progress Note Date: 01/18/25 Principal diagnosis: S/P I and D right hand dog bite wound Patient is seen at bedside this morning. She is postop day #1 from I and D right hand dog bite wound. She has pain at the surgical site as expected but denies any new complaints. She denies numbness, tingling or calf pain. Review of systems is negative for fever, chills, chest pain, shortness of breath or other Objective - Vital Signs Vital signs: Vital Signs Temp 97.5 F L 01/18/25 07:00 Pulse 96 01/18/25 07:00 Resp 15 01/18/25 07:00 BP 180/95 01/18/25 07:00 Pulse Ox 98 01/18/25 07:00 FiO2 Intake & Output 01/17/25 01/18/25 01/18/25 18:59 06:59 18:59 Intake Total 700 100 Output Total 2 Balance 700 98 Intake: IV 700 100 Output: Estimated Blood Loss 2 Other: Voiding Method Toilet # Voids 3 2 - Exam Inspection reveals a benign surgical wound. There is no active bleeding or drainage. Neurovascular status is intact throughout the upper extremity with motor and sensation fully intact. 2+ radial pulse and less than 2 second cap refill is present. - Constitutional General appearance: Present: no acute distress - Labs CBC & Chem 7: 01/16/25 04:41 01/17/25 07:45 Assessment and Plan (1) Cellulitis of left hand Narrative/Plan: She will continue with routine postop orthopedic protocol including pain management, wound care, PT, DVT prophylaxis and medical management. Continue IV antibiotics, elevation and dressing changes. Expect that she will transfer to home in next few days Current Visit: Yes Status: Acute Priority: Medium Code(s): L03.114 - CELLULITIS OF LEFT UPPER LIMB SNOMED Code(s): 90001563662274276 (2) Cellulitis of right hand Current Visit: Yes Status: Acute Priority: Medium Code(s): L03.113 - CELLULITIS OF RIGHT UPPER LIMB SNOMED Code(s): 36967611250608899 (3) Dog bite Current Visit: Yes Status: Acute Priority: Medium Code(s): W54.0XXA - BITTEN BY DOG, INITIAL ENCOUNTER SNOMED Code(s): 061236382 Time with Patient: Less than 30
--- NOTE | 2025-01-18 14:19 | P.PN ---
Subjective Progress Note Date: 01/18/25 Principal diagnosis: Reason for follow-up is bilateral hand dog bite cellulitis Patient is a 39-year-old female with a past medical history significant for cancer presenting to the hospital for evaluation of bilateral hand dog bite cellulitis marked on the right side.Patient is status post right hand I&D by orthopedics on 01/17/2025 and cultures. On today's evaluation that is 01/18/2025, Patient is afebrile patient is currently on room air and denies having any shortness of breath, the patient denies any chest pain or cough, the patient denies any nausea vomiting did not have any abdominal pain and no diarrhea, pain to the right hand is currently controlled left hand pain and swelling has improved. No new labs has been repeated today cultures are currently pending Objective - Vital Signs Vital signs: Vital Signs Temp 98.1 F 01/18/25 14:06 Pulse 97 01/18/25 14:06 Resp 16 01/18/25 14:06 BP 139/87 01/18/25 14:06 Pulse Ox 98 01/18/25 14:06 FiO2 Intake & Output 01/17/25 01/18/25 01/18/25 18:59 06:59 18:59 Intake Total 700 100 Output Total 2 Balance 700 98 Intake: IV 700 100 Output: Estimated Blood Loss 2 Other: Voiding Method Toilet # Voids 3 2 3 - Exam GENERAL DESCRIPTION:Female up in bed in no distress RESPIRATORY SYSTEM: Unlabored breathing , decreased breath sounds at bases HEART: S1 S2 regular rate and rhythm , ABDOMEN: Soft , no tenderness EXTREMITIES: Right hand currently dressed in OR dressing - Labs CBC & Chem 7: 01/16/25 04:41 01/17/25 07:45 Assessment and Plan (1) Cellulitis of right hand Current Visit: Yes Status: Acute Priority: Medium Code(s): L03.113 - CELLULITIS OF RIGHT UPPER LIMB SNOMED Code(s): 59430918436490364 (2) Cellulitis of left hand Current Visit: Yes Status: Acute Priority: Medium Code(s): L03.114 - CELLULITIS OF LEFT UPPER LIMB SNOMED Code(s): 53457167608501484 (3) Superficial wound due to dog bite Current Visit: Yes Status: Acute Code(s): T14.8XXA - OTHER INJURY OF UNSP ECIFIED BODY REGION, INITIAL ENCOUNTER; W54.0XXA - BITTEN BY DOG, INITIAL ENCOUNTER SNOMED Code(s): 309910211 Plan: 1patient presenting to the hospital with bilateral hand pain swelling redness laceration and some drainage secondary to dog bite. Need to cover for the polymicrobial marisela and there is concern for possible deeper infection such as tenosynovitis. 2patient is status post surgical I&D of the right side and cultures which are currently pending 3patient will be treated with vancomycin pharmacy to dose and Unasyn while waiting for the culture to finalize and monitor clinical course closely Dictation was produced using [employer] dictation software. please excuse any grammatical, word or spelling errors. Time with Patient: Less than 30
[2025-01-18] MEDS: HYDROcodone/APAP 7.5-325MG 1 EACH TAB PO PRN (17:26)
--- NOTE | 2025-01-18 20:28 | P.PN ---
Subjective This is a pleasant 39 years old female who presents with animal bite. Patient was seen with family member, significant other at bedside. Patient states that she has been bitten by a neighbor dog. She thinks her symptoms were extended approximately. She reports pain about 9/10 No chest pain. No dyspnea. No other specific GI/ symptoms. No headache dizziness weakness numbness She smokes about 4 to 5 cigarettes/day and she was counseled to quit but she does not want nicotine patch. No alcohol or illicit drugs. She is afebrile and blood pressure stable WBC normal 7.8 as well as rest of CBC and BMP. Liver enzymes mildly elevated. ESR is slightly up at 35 with CRP slightly up at 3.1 Patient is on IV vancomycin Patient evaluated by orthopedic team with possible need for surgical debridement per their evaluation 01/16 Patient showing improvement in her left hand with less swelling and restriction of movement, her main symptoms is in her left index finger with swelling and tenderness with close puncture wounds on either side However her right hand is still very symptomatic swollen tender erythematous with severe limitation of flexion and extension of the fingers. Her wrist is fine. Patient has mild hypothermia Labs look stable She remains on IV Unasyn and IV vancomycin She is on normal saline 30 mL/h Patient requests resume her mental health medication Orthopedic team planning for possible I&D of her right hand tomorrow 01/17 Patient right hand more swollen tender with loss of function, left hand less infected but mainly the second index finger Patient was anxious despite resuming her psych medication, extra dose of Xanax provided Patient is going for I&D with orthopedic team today She remains on broad-spectrum antibiotics with IV vancomycin and Unasyn Lower Normal Saline to 75 mL/h 01/18 Patient is status post I&D of her right hand cellulitis. She is postop day #1. She has pain at her right hand which is expected. She was placed on IV Dilaudid She remains on IV fluid and broad-spectrum antibiotics with IV vancomycin and Unasyn pending wound culture results Objective - Vital Signs Vital signs: Vital Signs Temp 98.1 F 01/18/25 14:06 Pulse 97 01/18/25 14:06 Resp 16 01/18/25 14:06 BP 139/87 01/18/25 14:06 Pulse Ox 98 01/18/25 14:06 FiO2 Intake & Output 01/17/25 01/18/25 01/18/25 18:59 06:59 18:59 Intake Total 700 100 Output Total 2 Balance 700 98 Intake: IV 700 100 Output: Estimated Blood Loss 2 Other: Voiding Method Toilet # Voids 3 2 3 - Exam GENERAL: The patient is alert and oriented x3, not in any acute distress. Well developed, well nourished. HEENT: Pupils are round and equally reacting to light. EOMI. No scleral icterus. No conjunctival pallor. Normocephalic, atraumatic. No pharyngeal erythema. No thyromegaly. CARDIOVASCULAR: S1 and S2 present. No murmurs, rubs, or gallops. PULMONARY: Chest is clear to auscultation, no wheezing , no crackles. ABDOMEN: Soft, nontender, nondistended, normoactive bowel sounds. No palpable organomegaly. MUSCULOSKELETAL: No joint swelling or deformity. -EXTREMITIES: No cyanosis, clubbing, or pedal edema. Bilateral hand swelling and tender with some limitation of movement for example finger flexion. With evidence of animal bite with close puncture wounds on the bilateral right index finger and left palm and side of the left little finger. With some swelling extending to the distal forearm. Moderate free bilateral wrist movement NEUROLOGICAL: Gross neurological examination did not reveal any focal deficits. SKIN: No rashes. no petechiae. - Labs CBC & Chem 7: 01/16/25 04:41 01/17/25 07:45 Assessment and Plan Assessment: Acute bilateral hands slightly secondary to animal bite Nicotine dependence Obesity with BMI of 41.9 Elevated inflammatory markers Mild transaminitis Plan: Continue with IV antibiotics IV vancomycin and IV Unasyn Orthopedic team already evaluated patient. Will consult infectious disease team Follow-up culture results Further recommendation based on the clinical progress GI prophylaxis: Pepcid DVT prophylaxis: Subcutaneous Lovenox Prognosis is guarded
[2025-01-19] MEDS ORDERED: VANCOMYCIN TROUGH DUE 1 EACH MISC MISCELLANE ONE (08:00)
[2025-01-19 09:29] LABS: African American GFR (CKD) >90 (>60 ml/min/1.73 sqM); Non-African American GFR(CKD) >90 (>60 ml/min/1.73 sqM)
[2025-01-19] MEDS: VANCOMYCIN 2,000 MG in SODIUM CHLORIDE 0.9% 500 ML 500 ML IVPB SCH (12:09)
--- NOTE | 2025-01-19 12:26 | P.PN ---
Subjective Progress Note Date: 01/19/25 Principal diagnosis: S/P I and D right hand dog bite wound Patient is seen at bedside this morning. She is postop day #2 from I and D right hand dog bite wound. She has pain at the surgical site as expected but denies any new complaints. She denies numbness, tingling or calf pain. Review of systems is negative for fever, chills, chest pain, shortness of breath or other Objective - Vital Signs Vital signs: Vital Signs Temp 97.5 F L 01/19/25 07:00 Pulse 75 01/19/25 10:38 Resp 18 01/19/25 07:00 BP 114/73 01/19/25 10:38 Pulse Ox 96 01/19/25 10:38 FiO2 Intake & Output 01/18/25 01/19/25 01/19/25 18:59 06:59 18:59 Other: Voiding Method Toilet # Voids 3 2 # Bowel Movements 1 - Exam Inspection reveals a benign surgical wound. There is no active bleeding or drainage. Neurovascular status is intact throughout the upper extremity with motor and sensation fully intact. 2+ radial pulse and less than 2 second cap refill is present. - Constitutional General appearance: Present: no acute distress - Labs CBC & Chem 7: 01/16/25 04:41 01/19/25 09:01 Labs: Microbiology - Last 24 Hours (Table) 01/17/25 18:06 Gram Stain - Preliminary Hand - Right Wound Culture - Preliminary 01/17/25 18:06 Gram Stain - Preliminary Hand - Right Wound Culture - Preliminary Assessment and Plan (1) Cellulitis of left hand Narrative/Plan: She will continue with routine postop orthopedic protocol including pain management, wound care, DVT prophylaxis and medical management. Gauze bandage was changed today. Continue IV antibiotics, elevation and dressing changes. Expect that she will transfer to home in next few days Current Visit: Yes Status: Acute Priority: Medium Code(s): L03.114 - CELLULITIS OF LEFT UPPER LIMB SNOMED Code(s): 65710044274459085 (2) Cellulitis of right hand Current Visit: Yes Status: Acute Priority: Medium Code(s): L03.113 - CELLULITIS OF RIGHT UPPER LIMB SNOMED Code(s): 97396950441500019 (3) Dog bite Current Visit: Yes Status: Acute Priority: Medium Code(s): W54.0XXA - BITTEN BY DOG, INITIAL ENCOUNTER SNOMED Code(s): 102620984 Time with Patient: Less than 30
--- NOTE | 2025-01-19 14:38 | P.PN ---
Subjective Progress Note Date: 01/19/25 Principal diagnosis: Reason for follow-up is bilateral hand dog bite cellulitis Patient is a 39-year-old female with a past medical history significant for cancer presenting to the hospital for evaluation of bilateral hand dog bite cellulitis marked on the right side.Patient is status post right hand I&D by orthopedics on 01/17/2025 and cultures. On today's evaluation that is 01/19/2025, patient has been afebrile, patient is breathing comfortably and is currently on room air, patient denies having any chest pain and cough, patient denies nausea vomiting or diarrhea and no abdominal pain pain to the right hand is currently controlled has been complaining of some headache with the vancomycin. Patient did have a creatinine 0.56 Vanco trough is 13.9 cultures are currently pending Objective - Vital Signs Vital signs: Vital Signs Temp 97.5 F L 01/19/25 07:00 Pulse 75 01/19/25 10:38 Resp 18 01/19/25 07:00 BP 114/73 01/19/25 10:38 Pulse Ox 96 01/19/25 10:38 FiO2 Intake & Output 01/18/25 01/19/25 01/19/25 18:59 06:59 18:59 Other: Voiding Method Toilet # Voids 3 2 # Bowel Movements 1 - Exam GENERAL DESCRIPTION:Female up in bed in no distress RESPIRATORY SYSTEM: Unlabored breathing , decreased breath sounds at bases HEART: S1 S2 regular rate and rhythm , ABDOMEN: Soft , no tenderness EXTREMITIES: Right hand currently dressed in OR dressing - Labs CBC & Chem 7: 01/16/25 04:41 01/19/25 09:01 Labs: Microbiology - Last 24 Hours (Table) 01/17/25 18:06 Gram Stain - Preliminary Hand - Right Wound Culture - Preliminary 01/17/25 18:06 Gram Stain - Preliminary Hand - Right Wound Culture - Preliminary Assessment and Plan (1) Cellulitis of right hand Current Visit: Yes Status: Acute Priority: Medium Code(s): L03.113 - CELLULITIS OF RIGHT UPPER LIMB SNOMED Code(s): 93557571800328280 (2) Cellulitis of left hand Current Visit: Yes Status: Acute Priority: Medium Code(s): L03.114 - CELLULITIS OF LEFT UPPER LIMB SNOMED Code(s): 72672840637628850 (3) Superficial wound due to dog bite Current Visit: Yes Status: Acute Code(s): T14.8XXA - OTHER INJURY OF UNSPECIFIED BODY REGION, INITIAL ENCOUNTER; W54.0XXA - BITTEN BY DOG, INITIAL ENCOUNTER SNOMED Code(s): 590029278 Plan: 1patient presenting to the hospital with bilateral hand pain swelling redness laceration and some drainage secondary to dog bite. Need to cover for the polymicrobial marisela and there is concern for possible deeper infection such as tenosynovitis. 2patient is status post surgical I&D of the right side and cultures which are currently pending 3patient advised to continue with vancomycin pharmacy to dose and Unasyn while waiting for the culture to finalize to determine her discharge antibiotics Dictation was produced using [employer] dictation software. please excuse any grammatical, word or spelling errors. Time with Patient: Less than 30
[2025-01-19] MEDS: ALPRAZolam 0.5 MG TAB PO STA (14:55)
[2025-01-19] MEDS: VANCOMYCIN TROUGH DUE 1 EACH MISC MISCELLANE ONE (14:56)
--- NOTE | 2025-01-19 20:52 | P.PN ---
Subjective This is a pleasant 39 years old female who presents with animal bite. Patient was seen with family member, significant other at bedside. Patient states that she has been bitten by a neighbor dog. She thinks her symptoms were extended approximately. She reports pain about 9/10 No chest pain. No dyspnea. No other specific GI/ symptoms. No headache dizziness weakness numbness She smokes about 4 to 5 cigarettes/day and she was counseled to quit but she does not want nicotine patch. No alcohol or illicit drugs. She is afebrile and blood pressure stable WBC normal 7.8 as well as rest of CBC and BMP. Liver enzymes mildly elevated. ESR is slightly up at 35 with CRP slightly up at 3.1 Patient is on IV vancomycin Patient evaluated by orthopedic team with possible need for surgical debridement per their evaluation 01/16 Patient showing improvement in her left hand with less swelling and restriction of movement, her main symptoms is in her left index finger with swelling and tenderness with close puncture wounds on either side However her right hand is still very symptomatic swollen tender erythematous with severe limitation of flexion and extension of the fingers. Her wrist is fine. Patient has mild hypothermia Labs look stable She remains on IV Unasyn and IV vancomycin She is on normal saline 30 mL/h Patient requests resume her mental health medication Orthopedic team planning for possible I&D of her right hand tomorrow 01/17 Patient right hand more swollen tender with loss of function, left hand less infected but mainly the second index finger Patient was anxious despite resuming her psych medication, extra dose of Xanax provided Patient is going for I&D with orthopedic team today She remains on broad-spectrum antibiotics with IV vancomycin and Unasyn Lower Normal Saline to 75 mL/h 01/18 Patient is status post I&D of her right hand cellulitis. She is postop day #1. She has pain at her right hand which is expected. She was placed on IV Dilaudid She remains on IV fluid and broad-spectrum antibiotics with IV vancomycin and Unasyn pending wound culture results 01/19 Patient still has pain in her right hand at the surgical site She is anxious requires 1 dose of Xanax today. Will place her and Atarax as needed for further care of her anxiety Wound culture still pending Remains on IV vancomycin and Unasyn Objective - Vital Signs Vital signs: Vital Signs Temp 97.5 F L 01/19/25 07:00 Pulse 75 01/19/25 10:38 Resp 18 01/19/25 07:00 BP 114/73 01/19/25 10:38 Pulse Ox 96 01/19/25 10:38 FiO2 Intake & Output 01/18/25 01/19/25 01/19/25 18:59 06:59 18:59 Other: Voiding Method Toilet # Voids 3 2 # Bowel Movements 1 - Exam GENERAL: The patient is alert and oriented x3, not in any acute distress. Well developed, well nourished. HEENT: Pupils are round and equally reacting to light. EOMI. No scleral icterus. No conjunctival pallor. Normocephalic, atraumatic. No pharyngeal erythema. No thyromegaly. CARDIOVASCULAR: S1 and S2 present. No murmurs, rubs, or gallops. PULMONARY: Chest is clear to auscultation, no wheezing , no crackles. ABDOMEN: Soft, nontender, nondistended, normoactive bowel sounds. No palpable organomegaly. MUSCULOSKELETAL: No joint swelling or deformity. -EXTREMITIES: No cyanosis, clubbing, or pedal edema. Bilateral hand swelling and tender with some limitation of movement for example finger flexion. With evidence of animal bite with close puncture wounds on the bilateral right index finger and left palm and side of the left little finger. With some swelling extending to the distal forearm. Moderate free bilateral wrist movement NEUROLOGICAL: Gross neurological examination did not reveal any focal deficits. SKIN: No rashes. no petechiae. - Labs CBC & Chem 7: 01/16/25 04:41 01/19/25 09:01 Labs: Microbiology - Last 24 Hours (Table) 01/17/25 18:06 Gram Stain - Preliminary Hand - Right Wound Culture - Preliminary 01/17/25 18:06 Gram Stain - Preliminary Hand - Right Wound Culture - Preliminary Assessment and Plan Assessment: Acute bilateral hands slightly secondary to animal bite Generalized anxiety disorder Nicotine dependence Obesity with BMI of 41.9 Elevated inflammatory markers Mild transaminitis Plan: Continue with IV antibiotics IV vancomycin and IV Unasyn Orthopedic team already evaluated patient. Will consult infectious disease team Follow-up culture results Add Atarax as needed Further recommendation based on the clinical progress GI prophylaxis: Pepcid DVT prophylaxis: Subcutaneous Lovenox Prognosis is guarded
--- NOTE | 2025-01-20 10:34 | P.PN ---
Subjective Progress Note Date: 01/20/25 Principal diagnosis: Dog bite bilateral hands. Cellulitis bilateral hands. Postop I&D right hand. 39-year-old female who presents to the emergency department as a transfer from [facility]. Patient had a dog bite to bilateral hands 2 days ago. States there was a neighbors dog that was running down the street and she tried to pick it up. It bit both of her hands. The dog is up-to-date on her vaccines. She is up-to-date on her tetanus. She went into [facility] yesterday and was given a dose of IV antibiotics. She was supposed to be transferred to [facility] but states that her car and route. Today she presented to [facility] reporting to bilateral hand swelling. They did give her 2 g of Rocephin, 2 g of Vanco and recommended that she be transferred as there is concern for flexor tenosynovitis due to the painful flexion and extension of her hands. Patient was given 4 mg of morphine for pain. She did transfer herself to our hospital by private vehicle. She denies any fevers. No other alleviating, precipitating or modifying factors. We have been consulted for orthopedic evaluation. 01/16/2025: The patient states that she continues to have pain in the right hand. She has noticed some bloody/purulent drainage from the palmar aspect of the hand. She has been afebrile. Vital signs are stable. 01/17/25: The patient continues to have increasing pain in the right hand. She states her left hand is doing fine. She has been using heat packs to the hands along with the IV antibiotics. 01/20/2025: This is a 39-year-old female who is postop day #3 status post I&D of the right hand and status post dog bite right hand. She has no new complaints or concerns today. She refused packing change yesterday. She is agreeable to a packing change today after pain medicine and IV Valium were given. Vital signs are stable. Gram stain shows no organism. Culture shows no growth at 24 hours. Up-to-date culture report is pending. Objective - Vital Signs Vital signs: Vital Signs Temp 98.2 F 01/20/25 07:00 Pulse 105 H 01/20/25 07:00 Resp 15 01/20/25 07:00 BP 156/99 01/20/25 07:00 Pulse Ox 96 01/20/25 07:00 FiO2 Intake & Output 01/19/25 01/20/25 01/20/25 18:59 06:59 18:59 Other: # Voids 4 3 - Exam This is a pleasant 39-year-old female in no acute distress. She is alert and oriented x 3. Exam of the right hand reveals that her packing is in place. The packing is pulled today without difficulty. A small amount of new packing is placed without difficulty. There is no active drainage from the wound. There is minimal erythema. Swelling is improved. She has full finger motion without difficulty or pain. Neurovascular status to the upper extremity is intact. - Labs CBC & Chem 7: 01/16/25 04:41 01/19/25 09:01 Labs: Microbiology - Last 24 Hours (Table) 01/17/25 18:06 Gram Stain - Final Hand - Right Wound Culture - Final 01/17/25 18:06 Gram Stain - Final Hand - Right Wound Culture - Final Assessment and Plan (1) Bilateral hand swelling Current Visit: Yes Status: Acute Code(s): M79.89 - OTHER SPECIFIED SOFT TISSUE DISORDERS SNOMED Code(s): 513701940 (2) Superficial wound due to dog bite Current Visit: Yes Status: Acute Code(s): T14.8XXA - OTHER INJURY OF UNSPECIFIED BODY REGION, INITIAL ENCOUNTER; W54.0XXA - BITTEN BY DOG, INITIAL ENCOUNTER SNOMED Code(s): 956628093 Plan: The clinical findings are discussed with the patient. Packing is changed. She will have daily packing changes with nursing staff. She may be discharged from orthopedic standpoint. Antibiotics per infectious disease. I have asked nursing staff to review packing changes with the patient's partner so that they may do them at home.
[2025-01-20] MEDS: HYDROcodone/APAP 7.5-325MG 1 EACH TAB PO PRN (10:36)
--- NOTE | 2025-01-20 11:53 | P.PN ---
Subjective This is a pleasant 39 years old female who presents with animal bite. Patient was seen with family member, significant other at bedside. Patient states that she has been bitten by a neighbor dog. She thinks her symptoms were extended approximately. She reports pain about 9/10 No chest pain. No dyspnea. No other specific GI/ symptoms. No headache dizziness weakness numbness She smokes about 4 to 5 cigarettes/day and she was counseled to quit but she does not want nicotine patch. No alcohol or illicit drugs. She is afebrile and blood pressure stable WBC normal 7.8 as well as rest of CBC and BMP. Liver enzymes mildly elevated. ESR is slightly up at 35 with CRP slightly up at 3.1 Patient is on IV vancomycin Patient evaluated by orthopedic team with possible need for surgical debridement per their evaluation 01/16 Patient showing improvement in her left hand with less swelling and restriction of movement, her main symptoms is in her left index finger with swelling and tenderness with close puncture wounds on either side However her right hand is still very symptomatic swollen tender erythematous with severe limitation of flexion and extension of the fingers. Her wrist is fine. Patient has mild hypothermia Labs look stable She remains on IV Unasyn and IV vancomycin She is on normal saline 30 mL/h Patient requests resume her mental health medication Orthopedic team planning for possible I&D of her right hand tomorrow 01/17 Patient right hand more swollen tender with loss of function, left hand less infected but mainly the second index finger Patient was anxious despite resuming her psych medication, extra dose of Xanax provided Patient is going for I&D with orthopedic team today She remains on broad-spectrum antibiotics with IV vancomycin and Unasyn Lower Normal Saline to 75 mL/h 01/18 Patient is status post I&D of her right hand cellulitis. She is postop day #1. She has pain at her right hand which is expected. She was placed on IV Dilaudid She remains on IV fluid and broad-spectrum antibiotics with IV vancomycin and Unasyn pending wound culture results 01/19 Patient still has pain in her right hand at the surgical site She is anxious requires 1 dose of Xanax today. Will place her and Atarax as needed for further care of her anxiety Wound culture still pending Remains on IV vancomycin and Unasyn 01/20 Pain is better She moving her fingers little bit but not completely resolved. Still dressing in the right hand She is struggled with therapy to the hand every night as she states Slow her IV fluid to 50 mL/h Objective - Vital Signs Vital signs: Vital Signs Temp 98.2 F 01/20/25 07:00 Pulse 105 H 01/20/25 07:00 Resp 15 01/20/25 07:00 BP 156/99 01/20/25 07:00 Pulse Ox 96 01/20/25 07:00 FiO2 Intake & Output 01/19/25 01/20/25 01/20/25 18:59 06:59 18:59 Other: Voiding Method Toilet # Voids 4 3 - Exam GENERAL: The patient is alert and oriented x3, not in any acute distress. Well developed, well nourished. HEENT: Pupils are round and equally reacting to light. EOMI. No scleral icterus. No conjunctival pallor. Normocephalic, atraumatic. No pharyngeal erythema. No thyromegaly. CARDIOVASCULAR: S1 and S2 present. No murmurs, rubs, or gallops. PULMONARY: Chest is clear to auscultation, no wheezing , no crackles. ABDOMEN: Soft, nontender, nondistended, normoactive bowel sounds. No palpable organomegaly. MUSCULOSKELETAL: No joint swelling or deformity. -EXTREMITIES: No cyanosis, clubbing, or pedal edema. Bilateral hand swelling and tender with some limitation of movement for example finger flexion. With evidence of animal bite with close puncture wounds on the bilateral right index finger and left palm and side of the left little finger. With some swelling extending to the distal forearm. Moderate free bilateral wrist movement NEUROLOGICAL: Gross neurological examination did not reveal any focal deficits. SKIN: No rashes. no petechiae. - Labs CBC & Chem 7: 01/16/25 04:41 01/19/25 09:01 Labs: Microbiology - Last 24 Hours (Table) 01/17/25 18:06 Gram Stain - Final Hand - Right Wound Culture - Final 01/17/25 18:06 Gram Stain - Final Hand - Right Wound Culture - Final Assessment and Plan Assessment: Acute bilateral hands slightly secondary to animal bite Generalized anxiety disorder Nicotine dependence Obesity with BMI of 41.9 Elevated inflammatory markers Mild transaminitis Plan: Continue with IV antibiotics IV vancomycin and IV Unasyn Orthopedic team already evaluated patient. Will consult infectious disease team Follow-up culture results Add Atarax as needed Further recommendation based on the clinical progress GI prophylaxis: Pepcid DVT prophylaxis: Subcutaneous Lovenox Prognosis is guarded
[2025-01-20] MEDS: hydrOXYzine HCL 25 MG TAB PO PRN (15:47)
--- NOTE | 2025-01-20 22:11 | P.PN ---
Subjective Progress Note Date: 01/20/25 Principal diagnosis: Reason for follow-up is bilateral hand dog bite cellulitis Patient is a 39-year-old female with a past medical history significant for cancer presenting to the hospital for evaluation of bilateral hand dog bite cellulitis marked on the right side.Patient is status post right hand I&D by orthopedics on 01/17/2025 and cultures. On today's evaluation that is 01/20/2025, Patient is afebrile this morning patient denies having any chest pain shortness of breath or cough, the patient is currently on room air, patient denies any abdominal pain no diarrhea no nausea no vomiting, pain to right hand has slightly decreased in intensity but mention was painful at the time of dressing changes. No new lab has been obtained today cultures has been negative so far Objective - Vital Signs Vital signs: Vital Signs Temp 98.2 F 01/20/25 07:00 Pulse 105 H 01/20/25 07:00 Resp 15 01/20/25 07:00 BP 156/99 01/20/25 07:00 Pulse Ox 96 01/20/25 07:00 FiO2 Intake & Output 01/19/25 01/20/25 01/20/25 18:59 06:59 18:59 Other: Voiding Method Toilet # Voids 4 3 - Exam GENERAL DESCRIPTION:Female up in bed in no distress RESPIRATORY SYSTEM: Unlabored breathing , decreased breath sounds at bases HEART: S1 S2 regular rate and rhythm , ABDOMEN: Soft , no tenderness EXTREMITIES: Right hand currently dressed in OR dressing - Labs CBC & Chem 7: 01/16/25 04:41 01/19/25 09:01 Labs: Microbiology - Last 24 Hours (Table) 01/17/25 18:06 Gram Stain - Final Hand - Right Wound Culture - Final 01/17/25 18:06 Gram Stain - Final Hand - Right Wound Culture - Final Assessment and Plan (1) Cellulitis of right hand Current Visit: Yes Status: Acute Priority: Medium Code(s): L03.113 - CELLULITIS OF RIGHT UPPER LIMB SNOMED Code(s): 43043789731334882 (2) Cellulitis of left hand Current Visit: Yes Status: Acute Priority: Medium Code(s): L03.114 - CELL ULITIS OF LEFT UPPER LIMB SNOMED Code(s): 69209077978682449 (3) Superficial wound due to dog bite Current Visit: Yes Status: Acute Code(s): T14.8XXA - OTHER INJURY OF UNSPECIFIED BODY REGION, INITIAL ENCOUNTER; W54.0XXA - BITTEN BY DOG, INITIAL ENCOUNTER SNOMED Code(s): 711086635 Plan: 1patient presenting to the hospital with bilateral hand pain swelling redness laceration and some drainage secondary to dog bite. Need to cover for the polymicrobial marisela and there is concern for possible deeper infection such as tenosynovitis. 2patient is status post surgical I&D of the right side and cultures which are far negative anaerobe culture still pending 3patient will be continued on Unasyn however discontinue vancomycin as no MRSA Dictation was produced using [employer] dictation software. please excuse any gramma tical, word or spelling errors. Time with Patient: Less than 30
[2025-01-21] MEDS ORDERED: polyethylene glycoL 3350 17 GM POWD.PACK PO PRN (11:02)
[2025-01-21] MEDS ORDERED: LACTULOSE 20 GM/30 ML CUP PO PRN (11:04)
--- NOTE | 2025-01-21 11:59 | P.PN ---
Subjective Progress Note Date: 01/21/25 Principal diagnosis: Dog bite bilateral hands. Cellulitis bilateral hands. Postop I&D right hand. 39-year-old female who presents to the emergency department as a transfer from [facility]. Patient had a dog bite to bilateral hands 2 days ago. States there was a neighbors dog that was running down the street and she tried to pick it up. It bit both of her hands. The dog is up-to-date on her vaccines. She is up-to-date on her tetanus. She went into [facility] yesterday and was given a dose of IV antibiotics. She was supposed to be transferred to [facility] but states that her car and route. Today she presented to [facility] reporting to bilateral hand swelling. They did give her 2 g of Rocephin, 2 g of Vanco and recommended that she be transferred as there is concern for flexor tenosynovitis due to the painful flexion and extension of her hands. Patient was given 4 mg of morphine for pain. She did transfer herself to our hospital by private vehicle. She denies any fevers. No other alleviating, precipitating or modifying factors. We have been consulted for orthopedic evaluation. 01/16/2025: The patient states that she continues to have pain in the right hand. She has noticed some bloody/purulent drainage from the palmar aspect of the hand. She has been afebrile. Vital signs are stable. 01/17/25: The patient continues to have increasing pain in the right hand. She states her left hand is doing fine. She has been using heat packs to the hands along with the IV antibiotics. 01/20/2025: This is a 39-year-old female who is postop day #3 status post I&D of the right hand and status post dog bite right hand. She has no new complaints or concerns today. She refused packing change yesterday. She is agreeable to a packing change today after pain medicine and IV Valium were given. Vital signs are stable. Gram stain shows no organism. Culture shows no growth at 24 hours. Up-to-date culture report is pending. 01/21/2025: Patient is doing well. She states that her pain is much improved. She is awaiting packing change with nursing staff once her partner arrives. She has no new complaints or concerns today. Vital signs are stable. Objective - Vital Signs Vital signs: Vital Signs Temp 97.9 F 01/21/25 07:00 Pulse 81 01/21/25 07:00 Resp 16 01/21/25 07:00 BP 137/92 01/21/25 07:00 Pulse Ox 99 01/21/25 07:00 FiO2 Intake & Output 01/20/25 01/21/25 01/21/25 18:59 06:59 18:59 Other: Voiding Method Toilet Toilet # Voids 4 2 - Exam This is a pleasant 39-year-old female in no acute distress. She is alert and oriented x 3. Exam of the right hand reveals that her packing is in place. The packing is in place there is no active drainage from the wound. There is minimal erythema. Swelling is improved. She has full finger motion without difficulty or pain. Neurovascular status to the upper extremity is intact. - Labs CBC & Chem 7: 01/16/25 04:41 01/19/25 09:01 Labs: Microbiology - Last 24 Hours (Table) 01/17/25 18:06 Anaerobic Culture - Preliminary Hand - Right 01/17/25 18:06 Anaerobic Culture - Preliminary Hand - Right 01/17/25 18:06 Gram Stain - Final Hand - Right Wound Culture - Final 01/17/25 18:06 Gram Stain - Final Hand - Right Wound Culture - Final Assessment and Plan (1) Bilateral hand swelling Current Visit: Yes Status: Acute Code(s): M79.89 - OTHER SPECIFIED SOFT TISSUE DISORDERS SNOMED Code(s): 487961157 (2) Superficial wound due to dog bite Current Visit: Yes Status: Acute Code(s): T14.8XXA - OTHER INJURY OF UNSPECIFIED BODY REGION, INITIAL ENCOUNTER; W54.0XXA - BITTEN BY DOG, INITIAL ENCOUNTER SNOMED Code(s): 775662023 Plan: The clinical findings are discussed with the patient. Packing is changed. She will have daily packing changes with nursing staff. She may be discharged from orthopedic standpoint. Antibiotics per infectious disease. I have asked nursing staff to review packing changes with the patient's partner so that they may do them at home.
[2025-01-21 13:13] VITALS: BP 129/88; PULSE 96; RESP 17; TEMP 98.4
--- NOTE | 2025-01-21 14:45 | P.PN ---
Subjective Progress Note Date: 01/21/25 Principal diagnosis: Reason for follow-up is bilateral hand dog bite cellulitis Patient is a 39-year-old female with a past medical history significant for cancer presenting to the hospital for evaluation of bilateral hand dog bite cellulitis marked on the right side.Patient is status post right hand I&D by orthopedics on 01/17/2025 and cultures. On today's evaluation that is 01/21/2025,the patient denies any fever or any chills, patient is breathing comfortably on room air, the patient denies chest pain shortness of breath and no significant cough, patient denies abdominal pain, no nausea vomiting or diarrhea. Pain to the right hand has decreased in intensity feeling better. Patient did have a creatinine 0.56 as of yesterday no labs were drawn today cultures has been negative so far Objective - Vital Signs Vital signs: Vital Signs Temp 97.9 F 01/21/25 07:00 Pulse 81 01/21/25 07:00 Resp 16 01/21/25 07:00 BP 137/92 01/21/25 07:00 Pulse Ox 99 01/21/25 07:00 FiO2 Intake & Output 01/20/25 01/21/25 01/21/25 18:59 06:59 18:59 Other: Voiding Method Toilet Toilet # Voids 4 2 - Exam GENERAL DESCRIPTION:Female up in bed in no distress RESPIRATORY SYSTEM: Unlabored breathing , decreased breath sounds at bases HEART: S1 S2 regular rate and rhythm , ABDOMEN: Soft , no tenderness EXTREMITIES: Right hand overall swelling redness has decreased no drainage - Labs CBC & Chem 7: 01/16/25 04:41 01/19/25 09:01 Labs: Microbiology - Last 24 Hours (Table) 01/17/25 18:06 Anaerobic Culture - Preliminary Hand - Right 01/17/25 18:06 Anaerobic Culture - Preliminary Hand - Right 01/17/25 18:06 Gram Stain - Final Hand - Right Wound Culture - Final 01/17/25 18:06 Gram Stain - Final Hand - Right Wound Culture - Final Assessment and Plan (1) Cellulitis of right hand Status: Acute Priority: Medium Code(s): L03.113 - CELLULITIS OF RIGHT UPPER LIMB SNOMED Code(s): 82098278751292904 (2) Cellulitis of left hand Status: Acute Priority: Medium Code(s): L03.114 - CELLULITIS OF LEFT UPPER LIMB SNOMED Code(s): 50867692542983171 (3) Superficial wound due to dog bite Status: Acute Code(s): T14.8XXA - OTHER INJURY OF UNSPECIFIED BODY REGION, INITIAL ENCOUNTER; W54.0XXA - BITTEN BY DOG, INITIAL ENCOUNTER SNOMED Code(s): 439252341 Plan: 1patient presenting to the hospital with bilateral hand pain swelling redness laceration and some drainage secondary to dog bite. Need to cover for the polymicrobial marisela and there is concern for possible deeper infection such as tenosynovitis. 2patient is status post surgical I&D of the right side and cultures which are far negative anaerobe culture still pending 3patient has shown overall clinical improvement on Unasyn she will finish therapy with oral Augmentin prescription sent to the pharmacy and close outpatient follow-up Dictation was produced using [employer] dictation software. please excuse any grammatical, word or spelling errors. Time with Patient: Less than 30
[2025-01-21] MEDS ORDERED: DOCUSATE 100 MG CAP PO SCH (21:00)
--- NOTE | 2025-01-21 23:26 | P.DS ---
Providers Date of admission: 01/15/25 14:49 Attending physician: Darrick Kelley MD Consults: 01/15/25 14:46 Consult Physician Urgent Consulting Provider: Jay Moreno Consult Reason/Comments: dog bite b/l hands, possible flexor tenosynovitis Do you want consulting provider notified?: Yes 01/15/25 19:37 Consult Physician Routine Consulting Provider: Roe Duarte Consult Reason/Comments: hand cellulitis, animal bite Do you want consulting provider notified?: Yes Primary care physician: Kaleb Fajardo Hospital Course: Diagnoses: Acute bilateral hands slightly secondary to animal bite. Mainly the right hand status post I&D by orthopedic team Generalized anxiety disorder Nicotine dependence Obesity with BMI of 41.9 Elevated inflammatory markers Mild transaminitis Hospital course: This is a pleasant 39 years old female who presents with animal bite. Patient was seen with family member, significant other at bedside. Patient states that she has been bitten by a neighbor dog. she reported pain about 9/10. Patient was evaluated by orthopedic team and infectious disease team. She was treated with IV antibiotics IV vancomycin and IV Unasyn. She underwent I&D and evacuation and debridement of the infection site of the right hand on 01/17. Patient Improving slowly and gradually. Her ability to move her fingers on the right has significantly improved but not completely resolved. Patient continue with exercises and therapy as an outpatient. Patient was cleared for discharge by both infectious disease team and ID team. Patient denies any other new complaint and agreeable for discharge Patient to be discharged on oral antibiotics as per ID, please refer to discharge instructions. Augmentin x 10 days. Pain prescription upon discharge provided by orthopedic team. Laxative provided for her upon discharge and prior to discharge as well Problems and management plan were discussed with the patient and he verbalized understanding and acceptance Patient was found stable and can be discharged home in guarded prognosis however he needs follow-up as an outpatient. Patient was instructed to follow up with PCP Dr. Fajardo within one week and patient agrees Patient was started to follow-up with orthopedic Dr. Sanchez in [address] Paul from infectious disease team in 1 week as well Physical exam Gen: patient is a AAOx3, no distress CVS: S1-S2, RRR, no murmur Lungs: B/L CTA, no wheezing Abdomen: soft, no distention, no tenderness, positive bowel sounds Extremity: no leg edema or induration Time spent more than 35 minutes Patient Condition at Discharge: Stable Plan - Discharge Summary Discharge Rx Participant: No New Discharge Prescriptions: New polyethylene glycoL 3350 [Miralax] 17 gm PO DAILY PRN 5 Days #5 packet PRN Reason: Constipation HYDROcodone/APAP 7.5-325MG [[place] 7.5-325] 1 - 2 tab PO Q6HR PRN #32 tab PRN Reason: Pain Docusate [Colace] 100 mg PO BID 30 Days #60 cap Amoxicillin/Potassium Clav [Amox-Clav 875-125 mg Tablet] 1 tab PO BID #20 tab Continue busPIRone HCL 15 mg PO BID Venlafaxine HCl [Effexor XR] 150 mg PO DAILY QUEtiapine [SEROquel] 100 mg PO HS cloNIDine HCL [Catapres] 0.2 mg PO BID Discharge Medication List QUEtiapine [SEROquel] 100 mg PO HS 01/15/25 [History] Venlafaxine HCl [Effexor XR] 150 mg PO DAILY 01/15/25 [History] busPIRone HCL 15 mg PO BID 01/15/25 [History] cloNIDine HCL [Catapres] 0.2 mg PO BID 01/15/25 [History] Amoxicillin/Potassium Clav [Amox-Clav 875-125 mg Tablet] 1 tab PO BID #20 tab 01/21/25 [Rx] Docusate [Colace] 100 mg PO BID 30 Days #60 cap 01/21/25 [Rx] HYDROcodone/APAP 7.5-325MG [[place] 7.5-325] 1 - 2 tab PO Q6HR PRN #32 tab 01/21 [Rx] polyethylene glycoL 3350 [Miralax] 17 gm PO DAILY PRN 5 Days #5 packet 01/21/25 [Rx] Follow up Appointment(s)/Referral(s): Kaleb Fajardo MD [Primary Care Provider] - 1-2 days Jay Moreno MD [STAFF PHYSICIAN] - 1 Week Roe Duarte MD [STAFF PHYSICIAN] - 1 Week Patient Instructions/Handouts: Animal Bite (ED) Activity/Diet/Wound Care/Special Instructions: Daily packing changes right hand. Discharge Disposition: HOME WITH HOME HEALTH SERVICES
--- NOTE | 2025-03-04 12:51 | P.OP ---
Date of Procedure: 01/17/25 Procedure(s) Performed: PREOPERATIVE DIAGNOSES: 1. Right hand abscess, volar 2. Status post dog bite injury 4 days ago, failure to respond to IV antibiotics 3. Right hand dorsal cellulitis POSTOPERATIVE DIAGNOSES: 1. Right hand subcutaneous abscess 2. Status post dog bite injury 4 days ago, failure to respond to IV antibiotics 3. Right hand dorsal cellulitis PROCEDURES PERFORMED: 1. Right hand subcutaneous abscess incision and drainage, cultures taken x 2 2. Packing of wound with iodoform gauze ANESTHESIA: Gen. CLAY DIGGER: Chanel Doe PA-C (assistance with exposure, hemostasis, retraction, fixation, closure, dressing, splint) COMPLICATIONS: None ESTIMATED BLOOD LOSS: Less than 20 mL. DISPOSITION: To post-anesthesia care unit INDICATIONS: Edith is a 39-year-old female who was attacked by a [place] terrier with a puncture wound into the volar aspect of the right hand. The wound is located at the level of the MCP joints between the 3rd and 4th fingers on the palm. She has had at least 36 hours of IV antibiotics without significant change in her symptoms and there is swelling and extreme tenderness over the dog bite wound. She is able to move her fingertips in flexion extension fairly well indicating that there is no evidence of flexor tenosynovitis. She presents to the operating room for incision and drainage and obtaining a deep wound culture. Consent has been obtained after discussion of the risks of incision and drainage of this abscess as being inclusive of, but not limited to: Bleeding, further infection, scarring, discomfort, blood vessel and/or nerve damage, compartment syndrome, failure to relieve symptoms, persistence or recurrence and/or worsening of symptoms or problems, need for further surgery, blood clot, pulmonary embolism, , anesthesia risks, and other risks. PROCEDURE: After appropriate consent was obtained, the patient was taken to the operating room placed in the supine position. Anesthesia was initiated, and after confirmation of adequate anesthesia, the patient was carefully positioned. Care was taken to make sure that all pressure points were adequately padded. Prepping and draping were completed in the usual aseptic fashion using ChloraPrep. Timeout was called, confirming patient identity, side, and procedure. Incision approximately 2.5 cm in size was created along the abscess, which was located on the volar aspect of the hand between the 3rd and 4th digits at the level of the MCP joint. Incision was carried down just through skin and into subcu tissues where was noted that there was gross pus. The gross pus was removed by extending the incision and gently spreading down to the abscess ca vity. The abscess cavity was probed with manual palpation until all areas of the abscess cavity were interrogated. Cultures were taken. There did not appear to be any extension of the abscess cavity into the deep muscular fascia. Soft tissue tension visibly and palpably improved after drainage of the abscess. Pulsatile lavage was used, delivering 3 L of saline within the abscess cavity. During this time, small amount of Hibiclens solution was also applied to the wound surface, allowed to soak into the tissues for 1 minute, and then rinsed off using the pulsatile lavage. Subsequently, hemostasis was obtained using electrocautery but there was no significant bleeding present. Wound was lightly packed with moistened half-inch iodoform gauze and sterile dressing was then applied. Patient tolerated the procedure well and taken to recovery room in stable condition. Sponge counts were correct.
== END 2025-01-21 13:23 | disposition home health service (06) | DRG 316 ==
LOC: EC 13:56 → 6NMEDSUR 14:48 → OBSVTOIN 14:49 → 6NMEDSUR 16:45
PROVIDERS: ADMIT Internal Medicine; ATTEND Internal Medicine
PROC: 0J9J0ZZ Drainage of Right Hand Subcutaneous Tissue and Fascia, Open Approach (ICD-10-PCS; principal; 2025-01-17 09:00)
DX: S61.451A Open bite of right hand, initial encounter (principal); L02.511 Cutaneous abscess of right hand; L03.114 Cellulitis of left upper limb; R68.0 Hypothermia, not associated with low environmental temperature; E66.9 Obesity, unspecified; Z68.41 Body mass index [BMI] 40.0-44.9, adult; F17.210 Nicotine dependence, cigarettes, uncomplicated; R74.01 Elevation of levels of liver transaminase levels; L03.113 Cellulitis of right upper limb; F41.1 Generalized anxiety disorder; S61.452A Open bite of left hand, initial encounter; Z79.899 Other long term (current) drug therapy; W54.0XXA Bitten by dog, initial encounter
CPT/HCPCS: 80048; 80053; 80202; 81025; 82565; 85025; 85652; 86140; 87070; 87075; 87205; 96365; 99285